=== PATIENT | female | born 1930 | race Caucasian/White ===

== ENCOUNTER 2017-02-21 13:48 | Inpatient (IN) | payer OTHER ==
--- NOTE | 2017-02-21 13:56 | PDOC ---
History of Present Illness - General History Source: Family Exam Limitations: No Limitations - History of Present Illness Initial Comments: 86 yo F h/o osteoporosis, HTN, ?dermoid tumor s/p R BKA, L knee replacement with severe lymphedema BIBEMS from home for feeling weak and poor appetite. Patient is poor historian and has no prior admission in [facility]. Most history was obtained from family at bedside. According to family, patient is functional at baseline but in the last few days, she's been weak and unable to eat due to poor appetite last few days, associated with spike fever of 102F, hard and questionable dark stool. She also lost 60 lbs in 1 year period. She was recently admitted to [facility] for swelling in L leg and was treated with antibiotics. Denies n/v, chest pain, shortness of breath, sick contact, abd pain. <Antoine Devries - Last Filed: 02/21/17 16:46> <King Hoyt - Last Filed: 02/21/17 19:20> - General Chief Complaint: Lethargy Stated Complaint: Weakness Time Seen by Provider: 02/21/17 13:55 Past History - Travel Traveled outside of the country in the last 30 days: No Close contact w/someone who was outside of country & ill: No <Antoine Devries - Last Filed: 02/21/17 16:46> <King Hoyt - Last Filed: 02/21/17 19:20> - Past Medical History Allergies/Adverse Reactions: Allergies Allergy/AdvReac Type Severity Reaction Status Date / Time No Known Allergies Allergy Verified 02/21/17 13:51 Home Medications: Ambulatory Orders Alendronate Na [Fosamax] 70 mg PO Q7D 02/21/17 Amlodipine Besylate [Norvasc -] 5 mg PO DAILY 02/21/17 Folic Acid 1 mg PO DAILY 02/21/17 Hydrochlorothiazide 25 mg PO DAILY 02/21/17 Hydroxychloroquine Sulfate 200 mg PO DAILY 02/21/17 Lovastatin [Altoprev] 20 mg PO DAILY 02/21/17 Methotrexate [Mexate -] 12.5 mg PO Q7D 02/21/17 Oxybutynin Chloride 5 mg PO DAILY 02/21/17 Potassium Chloride [Klor-Con] 20 meq PO DAILY 02/21/17 Review of Systems - Review of Systems Able to Perform ROS?: Yes (via family memeber) Is the patient limited Togolese proficient: No Constitutional: Yes: Chills, Fever, Loss of Appetite, Malaise, Weakness, Unintentional Wgt. Loss (60 lbs in 1 year) Respiratory: Yes: Cough. No: Shortness of Breath Cardiac (ROS): No: Chest Pain ABD/GI: Yes: Constipated, Tarry Stools. No: Nausea, Vomiting : No: Dysuria <Antoine Devries - Last Filed: 02/21/17 16:46> *Physical Exam - Physical Exam General Appearance: Yes: Cachetic, Thin. No: Apparent Distress HEENT: positive: Pale Conjunctivae Neck: positive: Trachea midline, Supple Respiratory/Chest: positive: Lungs Clear Rectal Exam: positive: melena, other (fecal incontinence) Neurologic: positive: Fully Oriented, Alert <Antoine Devries - Last Filed: 02/21/17 16:46> - Vital Signs Last Vital Signs Temp Pulse Resp BP Pulse Ox 100.7 F H 84 18 128/77 97 02/21/17 15:35 02/21/17 13:54 02/21/17 13:54 02/21/17 13:54 02/21/17 13:54 <King Hoyt - Last Filed: 02/21/17 19:20> ED Treatment Course - LABORATORY CBC & Chemistry Diagram: 02/21/17 14:20 02/21/17 14:19 <Antoine Devries - Last Filed: 02/21/17 16:46> - LABORATORY CBC & Chemistry Diagram: 02/21/17 14:20 02/21/17 14:19 - ADDITIONAL ORDERS Additional order review: Laboratory Results 02/21/17 02/21/17 02/21/17 15:00 14:55 14:19 Sodium Potassium Chloride Carbon Dioxide Anion Gap BUN Creatinine Creat Clearance w eGFR Random Glucose Calcium Phosphorus 3.2 Magnesium 1.2 L Total Bilirubin AST ALT Alkaline Phosphatase Total Protein Albumin Urine Color Dkyellow Urine Appearance Slcloudy Urine pH 5.0 Ur Specific [place] 1.017 Urine Protein 1+ H Urine Glucose (UA) Negative Urine Ketones Negative Urine Blood 1+ H Urine Nitrite Negative Urine Bilirubin Negative Urine Urobilinogen Negative Ur Leukocyte Esterase Trace H Urine RBC 1 Urine WBC 4 Ur Epithelial Cells Rare Hyaline Casts 3 Granular Casts 3 Urine Mucus Rare Stool Occult Blood Negative 02/21/17 14:19 Sodium 134 L Potassium 3.6 Chloride 98 Carbon Dioxide 22 Anion Gap 14 BUN 51 H Creatinine 1.4 H Creat Clearance w eGFR 35.74 Random Glucose 78 Calcium 8.1 L Phosphorus Magnesium Total Bilirubin 1.2 H AST 30 ALT 25 Alkaline Phosphatase 62 Total Protein 5.9 L Albumin 2.2 L Urine Color Urine Appearance Urine pH Ur Specific [place] Urine Protein Urine Glucose (UA) Urine Ketones Urine Blood Urine Nitrite Urine Bilirubin Urine Urobilinogen Ur Leukocyte Esterase Urine RBC Urine WBC Ur Epithelial Cells Hyaline Casts Granular Casts Urine Mucus Stool Occult Blood 02/21/17 14:20 RBC 3.27 L MCV 87.5 MCHC 32.6 RDW 16.3 H MPV 8.4 Neutrophils % 84.8 H Lymphocytes % 1.4 L Monocytes % 0.4 L Eosinophils % 13.3 H Basophils % 0.1 - RADIOLOGY Radiology Studies Ordered: Category Date Time Status CHEST X-RAY PORTABLE* [RAD] Stat Radiology 02/21/17 14:47 Completed - Medications Given in the ED: ED Medications Discontinued Medications Generic Name Dose Route Start Last Admin Trade Name Freq PRN Reason Stop Dose Admin Acetaminophen 650 mg 02/21/17 16:34 02/21/17 17:20 Tylenol - PO 02/21/17 16:35 650 mg ONCE ONE Administration Heparin Sodium (Porcine) 5,000 unit 02/21/17 15:51 02/21/17 16:49 Heparin - IVPUSH 02/21/17 15:52 5,000 unit ONCE ONE Administration Sodium Chloride 500 mls @ 500 mls/hr 02/21/17 15:38 02/21/17 16:48 Normal Saline - IV 02/21/17 16:37 500 mls/hr ASDIR STA Administration Heparin Sodium/Dextrose 500 mls @ 16 mls/hr 02/21/17 16:00 02/21/17 16:48 Heparin Infusion - IVPB Not Given TITR FAMILIA Protocol 800 UNITS/HR Sodium Chloride 500 mls @ 500 mls/hr 02/21/17 16:33 02/21/17 17:14 Normal Saline - IV 02/21/17 17:32 500 mls/hr ASDIR STA Administration Vancomycin HCl 1,000 mg 02/21/17 15:38 02/21/17 16:49 Vancomycin (Pre-Docked) IVPB 02/21/17 15:39 1,000 mg ONCE ONE Administration Protocol <King Hoyt - Last Filed: 02/21/17 19:20> Medical Decision Making - Medical Decision Making 02/21/17 15:06 86 yo F admitted to the ER for weakness and poor appetite. Patient does not look toxic or acutely ill, symptoms likely due to chronic medical condition. Will obtain full work up. 02/21/17 15:21 EKG shows new onset of a-fib. CHADSVASc score ~ 4. Lab works is remarkable for elevated BUN/Cr, low Mg2, negative stool OB. Patient still has low grade fever (100.7F) with chills, CXR is of poor quality but shows no acute pathology, UA is negative. 02/21/17 15:[address] Harry, will admit the patient and consult ID (Dr. Alarcon) 02/21/17 16:46 Lactic acid is 4.1, case discussed with Dr. Alarcon. <Antoine Devries - Last Filed: 02/21/17 16:46> *DC/Admit/Observation/Transfer - Discharge Dispostion Admit: Yes <Antoine Devries - Last Filed: 02/21/17 16:46> - Discharge Dispostion Admit: Yes <King Hoyt - Last Filed: 02/21/17 19:20> Diagnosis at time of Disposition: Lymphedema of left leg, Atrial fibrillation, new onset, Fever chills Cellulitis Qualifiers: Site of cellulitis: extremity Site of cellulitis of extremity: lower extremity Laterality: left Qualified Code(s): L03.116 - Cellulitis of left lower limb DVT (deep venous thrombosis) Qualifiers: DVT location: lower extremity Affected thrombotic vein of extremity: popliteal Laterality: left Chronicity: acute Qualified Code(s): I82.432 - Acute embolism and thrombosis of left popliteal vein - Discharge Dispostion Condition at time of disposition: Critical - Referrals
[2017-02-21 14:14] VITALS: BMI 23.1
--- NOTE | 2017-02-21 14:48 | PDOC ---
Attending Attestation - Resident Resident Name: Antoine Devries - ED Attending Attestation I have performed the following: I have examined & evaluated the patient, The case was reviewed & discussed with the resident, I agree w/resident's findings & plan - HPI HPI: 02/21/17 16:37 86y F hx of lymphedema, htn, oa, s/p r bka, lpresents from home for failure to thrive, per family the pt has been very week and poor appetite for several days and with a fever for atleast the past 3-4 days. on exam the pt has a very large L leg that is erythemadous and mildly warm to touch without other acute finidings as documented by dr. devries pt noted to have new onset afib - will start heparin will obtain US to r/o DVT --> swelling lymphedema vs dvt, likely cellulitis as it is warm - will treat with vancomycin +fever, likely from celluitis on LE, urine clean, cxr rotated, but sypmtoms inconsistent with pna lactic acid elevated to 4.1 --> likely sepsis will hydrate and reassess 02/21/17 19:10 +DVT on US discussed with pharmacy - as pt is above 80yo, and weight is ~60kg, Cr is 1.4, pt should remain at 2.5mg BID of eliquis 02/21/17 19:[address] solitario - will upgrade to ICU awaiting call back from dr. Schmidt CRITICAL CARE DOCUMENTATION: I spent ~45 minutes of Critical Care time, excluding separately billable procedures, involving high complexity decision making to assess, manipulate and support vital system function(s) to treat single or multiple vital organ system failure and/or to prevent further life threatening deterioration of the patient' s condition. - Physicial Exam PE: 02/21/17 19:38 see above - Medical Decision Making 02/24/17 10:06 see above Heart Score/ECG Review - ECG Impressions Comment:: 02/21/17 15:53 Twelve-lead EKG was performed and reviewed by me. Irregularly irregular rate of 103
[2017-02-21 14:55] LABS: BASOPHIL 0.1 % (0-2.0); EOSINOPHIL 13.3 % (0-4.5); MCH 28.5 pg (25.7-33.7); MCHC 32.6 g/dl (32.0-36.0); MEAN CELL VOLUME 87.5 fl (80-96); MEAN PLT VOLUME 8.4 fl (7.5-11.1); NEUTROPHILS 84.8 % (42.8-82.8); PLATELET COUNT 124 K/MM3 (134-434); RDW 16.3 % (11.6-15.6); WHITE BLOOD COUNT 7.5 K/mm3 (4.0-10.0)
[2017-02-21 14:55] LABS: ALBUMIN 2.2 g/dl (3.4-5.0); BILIRUBIN,TOTAL 1.2 mg/dL (0.2-1.0); CALCIUM 8.1 mg/dL (8.5-10.1); COCKROFT - GAULT 28.3985; CREATININE 1.4 mg/dL (0.55-1.02); TOT PROT 5.9 g/dl (6.4-8.2)
[2017-02-21 14:56] LABS: MAGNESIUM 1.2 mg/dL (1.8-2.4); PHOSPHOROUS 3.2 mg/dL (2.5-4.9)
[2017-02-21 15:26] LABS: URINE APPEARANCE SLCLOUDY; URINE BILIRUBIN NEGATIVE (NEGATIVE); URINE COLOR DKYELLOW; URINE GLUCOSE (UA) NEGATIVE (NEGATIVE); URINE KETONE NEGATIVE (NEGATIVE); URINE NITRITE NEGATIVE (NEGATIVE); URINE UROBILINOGEN NEGATIVE E.U./dl (0.2-1.0)
[2017-02-21 15:28] LABS: URINE BLOOD 1+ (NEGATIVE); URINE LEUK ESTERASE TRACE (NEGATIVE); URINE PROTEIN 1+ (NEGATIVE)
[2017-02-21 15:33] LABS: GRANULAR CASTS 3 /lpf; URINE HYALINE CAST 3 /lpf; URINE MUCUS RARE; URINE RBC 1 /hpf (0-3); URINE WBC 4 /hpf (3-5)
[2017-02-21] MEDS ORDERED: SODIUM CHLORIDE 500 ML IV STA ×2 (15:38→16:33)
[2017-02-21] MEDS ORDERED: VANCOMYCIN 1 GRAM (PRE-DOCKED) 1,000 MG/250 ML BAG IVPB ONE (15:38)
[2017-02-21] MEDS ORDERED: HEPARIN NA (PORCINE) 5,000 UNITS/ML 1ML VIAL IVPUSH ONE (15:51)
[2017-02-21] MEDS ORDERED: HEPARIN INFUSION - 500 ML IVPB SCH (16:00)
--- NOTE | 2017-02-21 16:00 | CON.CARD ---
Consult Consult Specialty:: Cardiology Referred by:: Emergency Department Reason for Consultation:: Newly diagnosed afib - History of Present Illness Chief Complaint: Fatigue History of Present Illness: 86 yo F h/o osteoporosis, HTN, ?dermoid tumor s/p R BKA, L knee replacement with severe lymphedema, rheumatoid arthritis BIBEMS from home for feeling weak, fever and poor appetite. Patient is poor historian and has no prior admission in [facility]. Most history was obtained from family at bedside. According to family, patient is functional at baseline, but in the last few days, she's been weak and unable to eat due to poor appetite last few days, associated with spike fever of 102F, hard and questionable dark stool. She also lost 60 lbs in 1 year period. She was recently admitted to [facility] for swelling in L leg. Denies n/v, chest pain, shortness of breath, near or true syncope, palpitations or abd pain. Found to be in afib 103. - History Source History Provided By: Patient Limitations to Obtaining History: No Limitations - Past Medical History Cardio/Vascular: Yes: AFIB, HTN - Alcohol/Substance Use Hx Alcohol Use: No - Smoking History Smoking history: Never smoked Home Medications - Allergies Allergies/Adverse Reactions: Allergies Allergy/AdvReac Type Severity Reaction Status Date / Time No Known Allergies Allergy Verified 02/21/17 13:51 - Home Medications Home Medications: Ambulatory Orders Alendronate Na [Fosamax] 70 mg PO Q7D 02/21/17 Amlodipine Besylate [Norvasc -] 5 mg PO DAILY 02/21/17 Folic Acid 1 mg PO DAILY 02/21/17 Hydrochlorothiazide 25 mg PO DAILY 02/21/17 Hydroxychloroquine Sulfate 200 mg PO DAILY 02/21/17 Lovastatin [Altoprev] 20 mg PO DAILY 02/21/17 Methotrexate [Mexate -] 12.5 mg PO Q7D 02/21/17 Oxybutynin Chloride 5 mg PO DAILY 02/21/17 Potassium Chloride [Klor-Con] 20 meq PO DAILY 02/21/17 Review of Systems - Review of Systems Constitutional: reports: Fever, Lethargy, Loss of Appetite Vital Signs: Vital Signs Temperature 100.7 F H 02/21/17 15:35 Pulse Rate 84 02/21/17 13:54 Respiratory Rate 18 02/21/17 13:54 Blood Pressure 128/77 02/21/17 13:54 O2 Sat by Pulse Oximetry (%) 97 02/21/17 13:54 Constitutional: Yes: No Distress, Calm Neck: Yes: Supple Respiratory: Yes: Regular, Diminished Gastrointestinal: Yes: Normal Bowel Sounds, Soft Cardiovascular: Yes: Tachycardia, Pulse Irregular JVD: No Carotid Bruit: No Heart Sounds: Yes: S1, S2 Murmur: Yes: Systolic Murmur, Grade 2 Extremities: Yes: Amputation (Right BKA) Edema: Yes Edema: LLE: 2+ - Other Data Labs, Other Data: CBC, BMP 02/21/17 14:20 02/21/17 14:19 Afib @ 103 Imaging - Results Chest X-ray: Report Reviewed (NAD) Problem List - Problems (1) Atrial fibrillation, new onset Code(s): I48.91 - UNSPECIFIED ATRIAL FIBRILLATION (2) Cellulitis Code(s): L03.90 - CELLULITIS, UNSPECIFIED Qualifiers: Site of cellulitis: extremity Site of cellulitis of extremity: lower extremity Laterality: left Qualified Code(s): L03.116 - Cellulitis of left lower limb (3) Fever chills Code(s): R50.9 - FEVER, UNSPECIFIED (4) Lymphedema of left leg Code(s): I89.0 - LYMPHEDEMA, NOT ELSEWHERE CLASSIFIED (5) Hypertensive cardiovascular disease Code(s): I11.9 - HYPERTENSIVE HEART DISEASE WITHOUT HEART FAILURE Qualifiers: Heart failure presence: without heart failure Qualified Code(s): I11.9 - Hypertensive heart disease without heart failure (6) Renal insufficiency Code(s): N28.9 - DISORDER OF KIDNEY AND URETER, UNSPECIFIED (7) Hyperlipidemia Code(s): E78.5 - HYPERLIPIDEMIA, UNSPECIFIED Qualifiers: Hyperlipidemia type: pure hypercholesterolemia Qualified Code(s): E78.00 - Pure hypercholesterolemia, unspecified; E78.0 - Pure hypercholesterolemia (8) Rheumatoid arthritis Code(s): M06.9 - RHEUMATOID ARTHRITIS, UNSPECIFIED Qualifiers: Rheumatoid arthritis location: unspecified site Assessment/Plan 1. Newly diagnosed atrial fibrillation of uncertain duration [id number] 2. HTN/HCVD 3. Rheumatoid arthritis 4. Febrile illness, possible overlying cellulitis of lymphedema limb 5. Hyperlipidemia 6. Renal insufficieny, unknown baseline P:1. Start Lopressor 25 bid with uptitration as tolerated, Eliquis 2.5 bid given elevated risk score, Lipitor 10 qd, eventual MAHNAZ-I/ARB once renal fxn stabilizes 2. Echocardiogram to assess ventricular and valve fxn 3. Empiric abx cover skin source , f/u C&S 4. Thank you for consultative opportunity
[2017-02-21] MEDS ORDERED: VANCOMYCIN 1 GRAM (PRE-DOCKED) 250 ML IVPB ONE (16:25)
[2017-02-21] MEDS ORDERED: HEPARIN NA (PORCINE) 5,000 UNITS/ML 1ML VIAL ONE (16:25)
[2017-02-21] MEDS ORDERED: HEPARIN INFUSION - 500 ML IVPB ONE (16:26)
[2017-02-21] MEDS ORDERED: ACETAMINOPHEN 325 MG TABLET (FP) PO ONE ×2 (16:34→19:34)
[2017-02-21 17:15] LABS: VENOUS BLOOD GAS HCO3 23.1 meq/L (19-25)
[2017-02-21] MEDS ORDERED: METOPROLOL TARTRATE 25 MG TABLET (FP) ONE (17:15)
[2017-02-21] MEDS ORDERED: ACETAMINOPHEN 325 MG TABLET (FP) ONE ×2 (17:15→19:35)
[2017-02-21 17:16] LABS: VENOUS PH 7.44 (7.32-7.42)
[2017-02-21] MEDS: METOPROLOL TARTRATE 25 MG TABLET (FP) PO SCH ×2 (17:20→22:57)
--- NOTE | 2017-02-21 17:28 | HP ---
Admitting History and Physical - Primary Care Physician PCP: Bob Harry - Admission History of Present Illness: 86 yo F h/o osteoporosis, HTN, ?dermoid tumor s/p R BKA, L knee replacement with severe lymphedema BIBEMS from home for feeling weak and poor appetite. Patient is poor historian and has no prior admission in [facility]. Most history was obtained from family at bedside. According to family, patient is functional at baseline but in the last few days, she's been weak and unable to eat due to poor appetite last few days, associated with spike fever of 102F, hard and questionable dark stool. She also lost 60 lbs in 1 year period. She was recently admitted to [facility] for swelling in L leg and was treated with antibiotics. Denies n/v, chest pain, shortness of breath, sick contact, abd pain. - Past Medical History Cardiovascular: Yes: AFIB, HTN - Smoking History Smoking history: Never smoked - Alcohol/Substance Use Hx Alcohol Use: No Home Medications - Allergies Allergies/Adverse Reactions: Allergies Allergy/AdvReac Type Severity Reaction Status Date / Time No Known Allergies Allergy Verified 02/21/17 13:51 - Home Medications Home Medications: Ambulatory Orders Alendronate Na [Fosamax] 70 mg PO Q7D 02/21/17 Amlodipine Besylate [Norvasc -] 5 mg PO DAILY 02/21/17 Folic Acid 1 mg PO DAILY 02/21/17 Hydrochlorothiazide 25 mg PO DAILY 02/21/17 Hydroxychloroquine Sulfate 200 mg PO DAILY 02/21/17 Lovastatin [Altoprev] 20 mg PO DAILY 02/21/17 Methotrexate [Mexate -] 12.5 mg PO Q7D 02/21/17 Oxybutynin Chloride 5 mg PO DAILY 02/21/17 Potassium Chloride [Klor-Con] 20 meq PO DAILY 02/21/17 Physical Examination Vital Signs: Vital Signs Temperature 100.7 F H 02/21/17 15:35 Pulse Rate 84 02/21/17 13:54 Respiratory Rate 18 02/21/17 13:54 Blood Pressure 128/77 02/21/17 13:54 O2 Sat by Pulse Oximetry (%) 97 02/21/17 13:54 Constitutional: Yes: No Distress HENT: Yes: Atraumatic Neck: Yes: Supple Cardiovascular: Yes: Regular Rate and Rhythm Respiratory: Yes: CTA Bilaterally Gastrointestinal: Yes: Normal Bowel Sounds Extremities: Yes: Other (LLEX CELLULITIS) Edema: RUE: 1+, LLE: 1+ Neurological: Yes: Alert Problem List - Problems (1) Atrial fibrillation, new onset Assessment/Plan: ON IV HEPARIN Code(s): I48.91 - UNSPECIFIED ATRIAL FIBRILLATION (2) Cellulitis Assessment/Plan: ON IV ABX BCX SENT ID CONSULT Code(s): L03.90 - CELLULITIS, UNSPECIFIED Qualifiers: Site of cellulitis: extremity Site of cellulitis of extremity: lower extremity Laterality: left Qualified Code(s): L03.116 - Cellulitis of left lower limb (3) Hyperlipidemia Assessment/Plan: ON MEDS STABLE Code(s): E78.5 - HYPERLIPIDEMIA, UNSPECIFIED Qualifiers: Hyperlipidemia type: pure hypercholesterolemia Qualified Code(s): E78.00 - Pure hypercholesterolemia, unspecified; E78.0 - Pure hypercholesterolemia (4) DVT (deep venous thrombosis) Assessment/Plan: IV HEPARIN Code(s): I82.409 - ACUTE EMBOLISM AND THOMBOS UNSP DEEP VN UNSP LOWER EXTREMITY Qualifiers: DVT location: lower extremity Affected thrombotic vein of extremity: popliteal Laterality: left Chronicity: acute Qualified Code(s): I82.432 - Acute embolism and thrombosis of left popliteal vein (5) Fever chills Assessment/Plan: BCX IV ABX Code(s): R50.9 - FEVER, UNSPECIFIED (6) Hypertensive cardiovascular disease Assessment/Plan: BP LOW ON PRESSORS Code(s): I11.9 - HYPERTENSIVE HEART DISEASE WITHOUT HEART FAILURE Qualifiers: Heart failure presence: without heart failure Qualified Code(s): I11.9 - Hypertensive heart disease without heart failure (7) Lymphedema of left leg Code(s): I89.0 - LYMPHEDEMA, NOT ELSEWHERE CLASSIFIED (8) Renal insufficiency Code(s): N28.9 - DISORDER OF KIDNEY AND URETER, UNSPECIFIED (9) Rheumatoid arthritis Code(s): M06.9 - RHEUMATOID ARTHRITIS, UNSPECIFIED Qualifiers: Rheumatoid arthritis location: unspecified site (10) Sepsis Assessment/Plan: POSITVE BCX IV ABX Code(s): A41.9 - SEPSIS, UNSPECIFIED ORGANISM Assessment/Plan Laboratory Tests 04/24/17 04/24/17 04/24/17 14:19 14:19 14:20 WBC 7.5 RBC 3.27 L Hgb 9.3 L Hct 28.6 L MCV 87.5 MCHC 32.6 RDW 16.3 H Plt Count 124 L MPV 8.4 Neutrophils % 84.8 H Lymphocytes % 1.4 L Monocytes % 0.4 L Eosinophils % 13.3 H Basophils % 0.1 VBG pH POC VBG pCO2 POC VBG pO2 Mixed VBG HCO3 Sodium 134 L Potassium 3.6 Chloride 98 Carbon Dioxide 22 Anion Gap 14 BUN 51 H Creatinine 1.4 H Creat Clearance w eGFR 35.74 Random Glucose 78 Lactic Acid Calcium 8.1 L Phosphorus 3.2 Magnesium 1.2 L Total Bilirubin 1.2 H AST 30 ALT 25 Alkaline Phosphatase 62 Total Protein 5.9 L Albumin 2.2 L TSH Urine Color Urine Appearance Urine pH Ur Specific [place] Urine Protein Urine Glucose (UA) Urine Ketones Urine Blood Urine Nitrite Urine Bilirubin Urine Urobilinogen Ur Leukocyte Esterase Urine RBC Urine WBC Ur Epithelial Cells Hyaline Casts Granular Casts Urine Mucus Stool Occult Blood 02/21/17 02/21/17 02/21/17 14:55 15:00 15:45 WBC RBC Hgb Hct MCV MCHC RDW Plt Count MPV Neutrophils % Lymphocytes % Monocytes % Eosinophils % Basophils % VBG pH POC VBG pCO2 POC VBG pO2 Mixed VBG HCO3 Sodium Potassium Chloride Carbon Dioxide Anion Gap BUN Creatinine Creat Clearance w eGFR Random Glucose Lactic Acid 4.171 H* Calcium Phosphorus Magnesium Total Bilirubin AST ALT Alkaline Phosphatase Total Protein Albumin TSH Urine Color Dkyellow Urine Appearance Slcloudy Urine pH 5.0 Ur Specific [place] 1.017 Urine Protein 1+ H Urine Glucose (UA) Negative Urine Ketones Negative Urine Blood 1+ H Urine Nitrite Negative Urine Bilirubin Negative Urine Urobilinogen Negative Ur Leukocyte Esterase Trace H Urine RBC 1 Urine WBC 4 Ur Epithelial Cells Rare Hyaline Casts 3 Granular Casts 3 Urine Mucus Rare Stool Occult Blood Negative 02/21/17 02/21/17 15:45 17:00 WBC RBC Hgb Hct MCV MCHC RDW Plt Count MPV Neutrophils % Lymphocytes % Monocytes % Eosinophils % Basophils % VBG pH 7.44 H POC VBG pCO2 34.2 L POC VBG pO2 19.7 L* Mixed VBG HCO3 23.1 Sodium Potassium Chloride Carbon Dioxide Anion Gap BUN Creatinine Creat Clearance w eGFR Random Glucose Lactic Acid Calcium Phosphorus Magnesium Total Bilirubin AST ALT Alkaline Phosphatase Total Protein Albumin TSH 0.76 Urine Color Urine Appearance Urine pH Ur Specific [place] Urine Protein Urine Glucose (UA) Urine Ketones Urine Blood Urine Nitrite Urine Bilirubin Urine Urobilinogen Ur Leukocyte Esterase Urine RBC Urine WBC Ur Epithelial Cells Hyaline Casts Granular Casts Urine Mucus Stool Occult Blood Active Medications Generic Name Dose Route Start Last Admin Trade Name Freq PRN Reason Stop Dose Admin Apixaban 2.5 mg 02/21/17 16:45 Eliquis - PO BID FAMILIA Sodium Chloride 500 mls @ 500 mls/hr 02/21/17 16:33 Normal Saline - IV 02/21/17 17:32 ASDIR STA Metoprolol Tartrate 25 mg 02/21/17 16:45 Lopressor - PO BID FAMILIA Assessment/Plan 1. Newly diagnosed atrial fibrillation of uncertain duration [id number] 2. HTN/HCVD 3. Rheumatoid arthritis 4. Febrile illness, possible overlying cellulitis of lymphedema limb 5. Hyperlipidemia 6. Renal insufficieny, unknown baseline 7.elevated lactic acid due to sepsis plan 1.on beta rebecca...HOLD on heparin cardiology consult 2.fever.../SEPSIS iv abx ucx bcx WILL CALL APPROPRITE CONSULTS ADMIT IN ICU cc time 60 min
[2017-02-21] MEDS: APIXABAN 2.5 MG TABLET PO SCH ×2 (17:31→23:34)
[2017-02-21] MEDS ORDERED: CEFTRIAXONE 50 ML IVPB SCH (18:30)
--- NOTE | 2017-02-21 19:25 | PN ---
Progress Note, Physician - Current Medication List Current Medications: Active Medications Apixaban (Eliquis -) 2.5 mg PO BID [facility] Last Admin: 02/21/17 17:31 Dose: Not Given Heparin Sodium (Porcine) (Heparin -) 5,000 unit SQ BID [facility] Ceftriaxone Sodium (Rocephin 1gm Ivpb (Pre-Docked)) 50 mls @ 200 mls/hr IVPB DAILY [facility] Metoprolol Tartrate (Lopressor -) 25 mg PO BID [facility] Last Admin: 02/21/17 17:20 Dose: 25 mg - Objective Vital Signs: Vital Signs Temperature 100.7 F H 02/21/17 15:35 Pulse Rate 84 02/21/17 13:54 Respiratory Rate 18 02/21/17 13:54 Blood Pressure 128/77 02/21/17 13:54 O2 Sat by Pulse Oximetry (%) 97 02/21/17 13:54
--- NOTE | 2017-02-21 19:25 | CONSULT ---
Consult Consult Specialty:: infectious diseases Referred by:: Reason for Consultation:: cellulitis left leg - History of Present Illness History of Present Illness: 86 yo F h/o osteoporosis, HTN, ?dermoid tumor s/p R BKA, L knee replacement with severe lymphedema BIBEMS from home for feeling weak and poor appetite. Patient is poor historian and has no prior admission in [facility]. Most history was obtained from family at bedside. According to family, patient is functional at baseline but in the last few days, she's been weak and unable to eat due to poor appetite last few days, associated with spike fever of 102F, hard and questionable dark stool. She also lost 60 lbs in 1 year period. She was recently admitted to [facility] for swelling in L leg and was treated with antibiotics. Denies n/v, chest pain, shortness of breath, sick contact, abd pain. history taken from charts and family as patient patient was worked up and found to have new onset afib and also dvt - History Source History Provided By: Medical Record Limitations to Obtaining History: Clinical Condition - Past Medical History Cardio/Vascular: Yes: AFIB, HTN - Alcohol/Substance Use Hx Alcohol Use: No - Smoking History Smoking history: Never smoked Home Medications - Allergies Allergies/Adverse Reactions: Allergies Allergy/AdvReac Type Severity Reaction Status Date / Time No Known Allergies Allergy Verified 02/21/17 13:51 - Home Medications Home Medications: Ambulatory Orders Alendronate Na [Fosamax] 70 mg PO Q7D 02/21/17 Amlodipine Besylate [Norvasc -] 5 mg PO DAILY 02/21/17 Folic Acid 1 mg PO DAILY 02/21/17 Hydrochlorothiazide 25 mg PO DAILY 02/21/17 Hydroxychloroquine Sulfate 200 mg PO DAILY 02/21/17 Lovastatin [Altoprev] 20 mg PO DAILY 02/21/17 Methotrexate [Mexate -] 12.5 mg PO Q7D 02/21/17 Oxybutynin Chloride 5 mg PO DAILY 02/21/17 Potassium Chloride [Klor-Con] 20 meq PO DAILY 02/21/17 Review of Systems Unable to obtain ROS, reason: unable to obtain - Review of Systems Constitutional: reports: Fever, Lethargy Physical Exam Vital Signs: Vital Signs Temperature 100.7 F H 02/21/17 15:35 Pulse Rate 84 02/21/17 13:54 Respiratory Rate 18 02/21/17 13:54 Blood Pressure 128/77 02/21/17 13:54 O2 Sat by Pulse Oximetry (%) 97 02/21/17 13:54 Constitutional: Yes: Moderate Distress, Other Eyes: Yes: Conjunctiva Clear HENT: Yes: Atraumatic Neck: Yes: Supple Cardiovascular: Yes: Regular Rate and Rhythm, Murmur Respiratory: Yes: Regular, Poor Air Entry Gastrointestinal: Yes: Normal Bowel Sounds, Soft Musculoskeletal: Yes: Joint Swelling, Muscle Pain, Other Extremities: Yes: Erythema, Other (swelling of the left ext) Edema: LLE: 2+ Integumentary: Yes: Erythema, Venous Stasis Changes, Other (lymphedema) Neurological: Yes: Alert, Confusion Psychiatric: Yes: Alert Imaging - Results Chest X-ray: Report Reviewed, Image Reviewed Assessment/Plan Problem List - Problems (1) Atrial fibrillation, new onset Code(s): I48.91 - UNSPECIFIED ATRIAL FIBRILLATION (2) Cellulitis Code(s): L03.90 - CELLULITIS, UNSPECIFIED Qualifiers: Site of cellulitis: extremity Site of cellulitis of extremity: lower extremity Laterality: left Qualified Code(s): L03.116 - Cellulitis of left lower limb (3) DVT (deep venous thrombosis) Code(s): I82.409 - ACUTE EMBOLISM AND THOMBOS UNSP DEEP VN UNSP LOWER EXTREMITY Qualifiers: DVT location: lower extremity Affected thrombotic vein of extremity: popliteal Laterality: left Chronicity: acute Qualified Code(s): I82.432 - Acute embolism and thrombosis of left popliteal vein (4) Fever chills Code(s): R50.9 - FEVER, UNSPECIFIED (5) Renal insufficiency Code(s): N28.9 - DISORDER OF KIDNEY AND URETER, UNSPECIFIED patient also has rlower lobe infiltrate plan close watch on fevers close watch on the ext patient is septic will start on broad spectrum abx icu to be on board await for cx to be back cc time 50 min
[2017-02-21] MEDS ORDERED: CEFTRIAXONE 50 ML ONE (19:28)
--- NOTE | 2017-02-21 21:03 | CONSULT ---
Consult Consult Specialty:: Pulm/CCM Reason for Consultation:: sepsis, cellulitis - History of Present Illness History of Present Illness: 86 yo woman osteoporosis, dermoid tumor s/p right BKA, HTN left knee replacement c/b severe lymphedema further complicated by cellulitis requiring recent admission to OSH for ABX presenting now with failure to thrive (weight loss >60lb in last yr), fever (102) in the setting of LE edema and erythema c/w recurrent cellulitis. In ED febrile. ABX started per ID. Found to have afib and LLE DVT started on apixaban. Lactate 4. BP 124/77 sat 100% on 2lpm. Patient transferred to ICU. Hemodynamically stable w/o distress. Denies n/v, chest pain, shortness of breath, sick contact, abd pain - History Source History Provided By: Patient, Medical Record - Past Medical History Cardio/Vascular: Yes: AFIB, HTN - Alcohol/Substance Use Hx Alcohol Use: No - Smoking History Smoking history: Never smoked Home Medications - Allergies Allergies/Adverse Reactions: Allergies Allergy/AdvReac Type Severity Reaction Status Date / Time No Known Allergies Allergy Verified 02/21/17 13:51 - Home Medications Home Medications: Ambulatory Orders Alendronate Na [Fosamax] 70 mg PO Q7D 02/21/17 Amlodipine Besylate [Norvasc -] 5 mg PO DAILY 02/21/17 Folic Acid 1 mg PO DAILY 02/21/17 Hydrochlorothiazide 25 mg PO DAILY 02/21/17 Hydroxychloroquine Sulfate 200 mg PO DAILY 02/21/17 Lovastatin [Altoprev] 20 mg PO DAILY 02/21/17 Methotrexate [Mexate -] 12.5 mg PO Q7D 02/21/17 Oxybutynin Chloride 5 mg PO DAILY 02/21/17 Potassium Chloride [Klor-Con] 20 meq PO DAILY 02/21/17 Family Disease History - Family Disease History Family History: Unremarkable Review of Systems - Review of Systems Constitutional: reports: Chills, Fever, Loss of Appetite, Unintentional Wgt. Loss, Weakness Integumentary: reports: Erythema (LLE edema, warm to touch), Other (stage 2 sacral) Physical Exam Vital Signs: Vital Signs Temperature 100.7 F H 02/21/17 15:35 Pulse Rate 84 02/21/17 13:54 Respiratory Rate 18 02/21/17 13:54 Blood Pressure 128/77 02/21/17 13:54 O2 Sat by Pulse Oximetry (%) 97 02/21/17 13:54 Current Medications Apixaban (Eliquis -) 2.5 mg PO BID [facility] Last Admin: 02/21/17 17:31 Dose: Not Given Ceftriaxone Sodium (Rocephin 1gm Ivpb (Pre-Docked)) 50 mls @ 200 mls/hr IVPB DAILY [facility] Last Admin: 02/21/17 21:00 Dose: 200 mls/hr Vancomycin HCl 1,250 mg/ (Dextrose) 250 mls @ 250 mls/hr IVPB DAILY [facility] PRN Reason: Protocol Piperacillin Sod/Tazobactam Sod (Zosyn 3.375gm Ivpb (Pre-Docked)) 50 mls @ 100 mls/hr IVPB Q8H-IV [facility] PRN Reason: Protocol Metoprolol Tartrate (Lopressor -) 25 mg PO BID [facility] Last Admin: 02/21/17 22:57 Dose: Not Given Nystatin (Nystop Powder -) 1 applic TP DAILY [facility] Constitutional: Yes: No Distress, Calm Eyes: Yes: EOM Intact, PERRL Cardiovascular: Yes: Tachycardia, Pulse Irregular, S2 Respiratory: Yes: Diminished Gastrointestinal: Yes: Soft Extremities: Yes: Other (LLE severe lymphedema, warm to touch) Imaging - Results Chest X-ray: Report Reviewed, Image Reviewed Problem List - Problems (1) Atrial fibrillation, new onset Code(s): I48.91 - UNSPECIFIED ATRIAL FIBRILLATION (2) Cellulitis Code(s): L03.90 - CELLULITIS, UNSPECIFIED Qualifiers: Site of cellulitis: extremity Site of cellulitis of extremity: lower extremity Laterality: left Qualified Code(s): L03.116 - Cellulitis of left lower limb (3) DVT (deep venous thrombosis) Code(s): I82.409 - ACUTE EMBOLISM AND THOMBOS UNSP DEEP VN UNSP LOWER EXTREMITY Qualifiers: DVT location: lower extremity Affected thrombotic vein of extremity: popliteal Laterality: left Chronicity: acute Qualified Code(s): I82.432 - Acute embolism and thrombosis of left popliteal vein (4) Fever chills Code(s): R50.9 - FEVER, UNSPECIFIED (5) Renal insufficiency Code(s): N28.9 - DISORDER OF KIDNEY AND URETER, UNSPECIFIED Assessment/Plan 86 yo woman sepsis r/t left LE cellulitis c/b afib w/ RVR found to have left sided DVT c/b RADHA -ABX per ID -O2 for sat >90% -anti-coagulation per primary team -incentive silvina -consider oncologic w/u for weight loss and failure thrive -IV fluids -renal dose medication Observe in ICU tonight can likely got to tele in AM Boerem ACNP Pulm/CCM
[2017-02-21] MEDS ORDERED: HEPARIN NA (PORCINE) 5,000 UNITS/ML 1ML VIAL SQ SCH (22:00)
[2017-02-21 22:36] LABS: TROPONIN I 0.51 ng/ml (0.00-0.05)
[2017-02-21] MEDS ORDERED: PT OWN MED DRAWER 7, Y5N ONE (22:41)
[2017-02-21] MEDS ORDERED: MAGNESIUM SULF 50% (8.12 MEQ/2 ML-1 GM VIAL) IVPB ONE (23:30)
[2017-02-22] MEDS: PIPERACILLIN/TAZOB 3.375 GM 50 ML IVPB SCH ×3 (02:30→17:31)
[2017-02-22] MEDS ORDERED: ACETAMINOPHEN 650 MG SUPP.RECT PR PRN (05:36)
[2017-02-22 06:50] LABS: MCH 28.6 pg (25.7-33.7); MEAN CELL VOLUME 89.4 fl (80-96); MEAN PLT VOLUME 8.7 fl (7.5-11.1)
--- NOTE | 2017-02-22 06:56 | PN ---
Progress Note (short form) - Note Progress Note: Chief Complaint: Events noted, notes reviewed, in moderate respiratory distress , cyanotic, complaining of dyspnea, no reported chest pain History of Present Illness: Seen and examined in the ICU. Events noted, notes reviewed, in moderate respiratory distress, cyanotic, complaining of dyspnea, no reported chest pain Febrile Medications: Current Medications Acetaminophen (Tylenol Suppository -) 650 mg TN Q6H PRN PRN Reason: FEVER OR PAIN Apixaban (Eliquis -) 2.5 mg PO BID [facility] Last Admin: 02/21/17 23:34 Dose: 2.5 mg Vancomycin HCl 1,250 mg/ (Dextrose) 250 mls @ 250 mls/hr IVPB DAILY [facility] PRN Reason: Protocol Piperacillin Sod/Tazobactam Sod (Zosyn 3.375gm Ivpb (Pre-Docked)) 50 mls @ 100 mls/hr IVPB Q8H-IV [facility] PRN Reason: Protocol Last Admin: 02/22/17 02:30 Dose: 100 mls/hr Metoprolol Tartrate (Lopressor -) 25 mg PO BID [facility] Last Admin: 02/21/17 22:57 Dose: Not Given Nystatin (Nystop Powder -) 1 applic TP DAILY [facility] Review of Systems Constitutional: denies Chills or Fever Respiratory: reports: Dyspnea Cardiovascular: As noted above Gastrointestinal: denies Nausea, Vomiting, Diarrhea or Constipation or Abdominal Discomfort Genitourinary: No Symptoms Reported Musculoskeletal: No Symptoms Reported Vital Signs: Last Vital Signs Temp Pulse Resp BP Pulse Ox 102.7 F H 101 H 38 H 99/52 92 L 02/21/17 23:00 02/22/17 06:24 02/22/17 05:00 02/22/17 01:02 02/22/17 06:24 Intake & Output 02/19/17 02/20/17 02/21/17 02/22/17 23:59 23:59 23:59 23:59 Intake Total 100 100 Balance 100 100 Weight 135 lb Constitutional: No Distress, Calm Neck: Supple Negative JVD No Bruit Respiratory: Diminished Breath Sounds at the Bases Bilaterally, Distant Breath Sounds Cardiovascular: S1 S2 Irregularly Irregular Grade 2/6 SM Gastrointestinal: Soft Benign Normal Bowel Sounds, Soft Extremities: Right BKA, Edema LLE Labs: Troponin, BNP 04/24/17 21:45 Troponin I 0.51 H CBC, BMP 02/22/17 05:17 Hepatic Panel Total Bilirubin 1.2 mg/dL (0.2-1.0) H 02/21/17 14:19 AST 30 U/L (15-37) 02/21/17 14:19 ALT 25 U/L (12-78) 02/21/17 14:19 Alkaline Phosphatase 62 U/L (45-117) 02/21/17 14:19 Albumin 2.2 g/dl (3.4-5.0) L 02/21/17 14:19 ABG Results ABG pH 7.34 (7.35-7.45) L 02/22/17 07:02 ABG pCO2 at Pt Temp 40.1 mmHg (35-45) 02/22/17 07:02 ABG pO2 at Pt Temp 98.1 mmHg (68-100) 02/22/17 07:02 ABG HCO3 20.6 meq/L (22-26) L 02/22/17 07:02 ABG O2 Sat (Measured) 96.1 % (90-98.9) 02/22/17 07:02 ABG O2 Content 12.0 % vol (15-22) L 02/22/17 07:02 ABG Base Excess -3.6 meq/l (-2-2) L 02/22/17 07:02 Assessment/Plan ASSESSMENT: 1. Respiratory distress, possible PTE in the setting of an acute DVT 2. 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 Diastolic LV dysfunction with class 0 NYHA classification LV failure 5. Neutropenia and anemia 6. Fever, possible cellulites 7. HTN 8. Hyperlipidemia 9. Acute renal insufficiency 10. Rheumatoid arthritis PLAN: 1. Continue Lopressor 2. Continue Eliquis at 2.5 mg twice daily (appropriate dosing for PAF), checked with pharmacy regarding dosing, there no data in reference to DVT treatment in this age group, to be discussed with the critical care team 3. Continue Lipitor 4. Recommend initiating MAHNAZ-I/ARB once renal function stabilizes 5. Antibiotics as per the primary team 6. ABG and chest x-ray this AM 7. Ideally chest CTA to evaluate for PTE, but defer related to acute renal insufficiency 8. Echocardiography to assess ventricular and valve function Berkley Posey MD
[2017-02-22 06:59] LABS: WHITE BLOOD COUNT 1.8 K/mm3 (4.0-10.0)
[2017-02-22 07:13] LABS: ALBUMIN 1.9 g/dl (3.4-5.0); BILIRUBIN,TOTAL 1.5 mg/dL (0.2-1.0); CALCIUM 7.8 mg/dL (8.5-10.1); COCKROFT - GAULT 24.8455; CREATININE 1.6 mg/dL (0.55-1.02); TOT PROT 5.3 g/dl (6.4-8.2)
[2017-02-22 07:13] LABS: ARTERIAL BLD GAS O2 SATURATION 96.1 % (90-98.9); ARTERIAL BLOOD GAS BASE EXCESS -3.6 meq/l (-2-2); ARTERIAL BLOOD GAS HCO3 20.6 meq/L (22-26); ARTERIAL BLOOD GAS PO2 98.1 mmHg (68-100); ARTERIAL BLOOD GAS pH 7.34 (7.35-7.45)
[2017-02-22 07:14] LABS: ALLENS TEST POSITIVE; ART PUNCT SITE RIGHT RADIAL; LPM/O2% 100%; PT. ON O2? YES; TYPE OF O2 AEROSOL MASK
[2017-02-22 07:15] LABS: PT'S TEMP 102.6
[2017-02-22] MEDS ORDERED: DEXTROSE 50%-WATER 50 ML VIAL ONE (07:31)
[2017-02-22] MEDS ORDERED: DEXTROSE 5%-NORMAL SALINE 1,000 ML IV SCH (07:45)
[2017-02-22] MEDS ORDERED: DEXTROSE 5%-NORMAL SALINE 500 ML IV SCH (07:45)
[2017-02-22 09:25] LABS: PLATELET COUNT 60 K/MM3 (134-434)
[2017-02-22 09:36] LABS: METAMYELOCYTE 1 % (0-2); PLATELET ESTIMATE DECREASED (NORMAL)
[2017-02-22 10:00] LABS: MAGNESIUM 2.1 mg/dL (1.8-2.4); PHOSPHOROUS 3.3 mg/dL (2.5-4.9)
[2017-02-22] MEDS: NYSTATIN POWDER 100,000 UNITS/GM - 15 GM TOPICAL POWDER TP SCH (10:20)
[2017-02-22] MEDS: METOPROLOL TARTRATE 25 MG TABLET (FP) PO SCH ×2 (10:20→21:53)
[2017-02-22] MEDS: APIXABAN 2.5 MG TABLET PO SCH ×2 (10:21→22:52)
--- NOTE | 2017-02-22 12:18 | PROC ---
Central Line Insertion Indication: CVP Monitoring, Sepsis, Vasopressor Risks and Benefits Explained: Yes Consent on Chart: Yes Central Line: Triple Lumen Catheter Anesthesia: 1% Lidocaine Sterile Technique: Yes Ultrasound Guided Assistance: Yes Position: Right Internal Jugular Post Insertion: Yes: Bilateral Breath Sounds, Bilateral Chest Expansion, Chest X-Ray Ordered Sterile Dressing Applied: Yes
[2017-02-22] MEDS ORDERED: NOREPINEPHRINE BITARTRATE 4 MG/4 ML ML IV ONE ×2 (12:21→20:47)
[2017-02-22] MEDS ORDERED: NOREPINEPHRINE BITARTRATE 8,000 MCG in DEXTROSE 5%-WATER - 492 ML IV SCH (12:30)
--- NOTE | 2017-02-22 12:45 | PN ---
Teaching Attending Note Name of Resident: Niels Pineda ATTENDING PHYSICIAN STATEMENT I saw and evaluated the patient. I reviewed the resident's note and discussed the case with the resident. I agree with the resident's findings and plan as documented. SUBJECTIVE: Patient seen and examined in the ICU. Awake and responsive on NIPPV. Hypotensive despite 3 liters IVF boluses. Increasing lactic acid level. Strep pyogenes A noted on 2 blood cultures. Intake & Output 02/19/17 02/20/17 02/21/17 02/22/17 23:59 23:59 23:59 23:59 Intake Total 100 100 Balance 100 100 Weight 135 lb Last Vital Signs Temp Pulse Resp BP Pulse Ox 99.6 F 86 18 80/52 97 02/22/17 10:00 02/22/17 10:15 02/22/17 10:00 02/22/17 10:00 02/22/17 10:15 Active Medications Acetaminophen (Tylenol Suppository -) 650 mg HI Q6H PRN PRN Reason: FEVER OR PAIN Apixaban (Eliquis -) 2.5 mg PO BID [facility] Last Admin: 02/22/17 10:21 Dose: 2.5 mg Vancomycin HCl 1,250 mg/ (Dextrose) 250 mls @ 250 mls/hr IVPB DAILY [facility] PRN Reason: Protocol Piperacillin Sod/Tazobactam Sod (Zosyn 3.375gm Ivpb (Pre-Docked)) 50 mls @ 100 mls/hr IVPB Q8H-IV [facility] PRN Reason: Protocol Last Admin: 02/22/17 10:12 Dose: 100 mls/hr Dextrose/Sodium Chloride (D5-Ns -) 1,000 mls @ 125 mls/hr IV ASDIR [facility] Last Admin: 02/22/17 08:00 Dose: Not Given Norepinephrine Bitartrate 8, (000 mcg/ Dextrose) 500 mls @ 18.75 mls/hr IV TITR [facility]; 5 MCG/MIN PRN Reason: Protocol Metoprolol Tartrate (Lopressor -) 25 mg PO BID [facility] Last Admin: 02/22/17 10:20 Dose: Not Given Nystatin (Nystop Powder -) 1 applic TP DAILY [facility] Last Admin: 02/22/17 10:20 Dose: 1 applic Constitutional: Yes: Awake and responsive, mildly tachpneic on NIPPV Eyes: Yes: (-) Icterus Cardiovascular: Yes: Tachycardia, Pulse Irregular, S2 Respiratory: Yes: Diminished at the bases, bilateral rhonchi Gastrointestinal: Yes: Soft Extremities: Yes: RLE BKA, LLE severe lymphedema, warm to touch Laboratory Results - last 24 hr 02/21/17 02/21/17 02/21/17 14:19 14:19 14:20 WBC 7.5 RBC 3.27 L Hgb 9.3 L Hct 28.6 L MCV 87.5 MCHC 32.6 RDW 16.3 H Plt Count 124 L MPV 8.4 Neutrophils % 84.8 H Lymphocytes % 1.4 L Monocytes % 0.4 L Eosinophils % 13.3 H Basophils % 0.1 Band Neutrophils Metamyelocytes Differential Comment Platelet Estimate PTT (Actin FS) Puncture Site Patient Temperature ABG pH ABG pCO2 at Pt Temp ABG pO2 at Pt Temp ABG HCO3 ABG O2 Sat (Measured) ABG O2 Content ABG Base Excess Paulino Test VBG pH POC VBG pCO2 POC VBG pO2 Mixed VBG HCO3 O2 Delivery Device Oxygen Flow Rate PEEP Sodium 134 L Potassium 3.6 Chloride 98 Carbon Dioxide 22 Anion Gap 14 BUN 51 H Creatinine 1.4 H Creat Clearance w eGFR 35.74 POC Glucometer Random Glucose 78 Lactic Acid Calcium 8.1 L Phosphorus 3.2 Magnesium 1.2 L Total Bilirubin 1.2 H AST 30 ALT 25 Alkaline Phosphatase 62 Creatine Kinase CK-MB (CK-2) Troponin I Total Protein 5.9 L Albumin 2.2 L TSH Urine Color Urine Appearance Urine pH Ur Specific [place] Urine Protein Urine Glucose (UA) Urine Ketones Urine Blood Urine Nitrite Urine Bilirubin Urine Urobilinogen Ur Leukocyte Esterase Urine RBC Urine WBC Ur Epithelial Cells Hyaline Casts Granular Casts Urine Mucus Stool Occult Blood 02/21/17 02/21/17 02/21/17 14:55 15:00 15:45 WBC RBC Hgb Hct MCV MCHC RDW Plt Count MPV Neutrophils % Lymphocytes % Monocytes % Eosinophils % Basophils % Band Neutrophils Metamyelocytes Differential Comment Platelet Estimate PTT (Actin FS) Puncture Site Patient Temperature ABG pH ABG pCO2 at Pt Temp ABG pO2 at Pt Temp ABG HCO3 ABG O2 Sat (Measured) ABG O2 Content ABG Base Excess Paulino Test VBG pH POC VBG pCO2 POC VBG pO2 Mixed VBG HCO3 O2 Delivery Device Oxygen Flow Rate PEEP Sodium Potassium Chloride Carbon Dioxide Anion Gap BUN Creatinine Creat Clearance w eGFR POC Glucometer Random Glucose Lactic Acid 4.171 H* Calcium Phosphorus Magnesium Total Bilirubin AST ALT Alkaline Phosphatase Creatine Kinase CK-MB (CK-2) Troponin I Total Protein Albumin TSH Urine Color Dkyellow Urine Appearance Slcloudy Urine pH 5.0 Ur Specific [place] 1.017 Urine Protein 1+ H Urine Glucose (UA) Negative Urine Ketones Negative Urine Blood 1+ H Urine Nitrite Negative Urine Bilirubin Negative Urine Urobilinogen Negative Ur Leukocyte Esterase Trace H Urine RBC 1 Urine WBC 4 Ur Epithelial Cells Rare Hyaline Casts 3 Granular Casts 3 Urine Mucus Rare Stool Occult Blood Negative 02/21/17 02/21/17 02/21/17 15:45 16:30 17:00 WBC RBC Hgb Hct MCV MCHC RDW Plt Count MPV Neutrophils % Lymphocytes % Monocytes % Eosinophils % Basophils % Band Neutrophils Metamyelocytes Differential Comment Platelet Estimate PTT (Actin FS) 41.0 H Puncture Site Patient Temperature ABG pH ABG pCO2 at Pt Temp ABG pO2 at Pt Temp ABG HCO3 ABG O2 Sat (Measured) ABG O2 Content ABG Base Excess Paulino Test VBG pH 7.44 H POC VBG pCO2 34.2 L POC VBG pO2 19.7 L* Mixed VBG HCO3 23.1 O2 Delivery Device Oxygen Flow Rate PEEP Sodium Potassium Chloride Carbon Dioxide Anion Gap BUN Creatinine Creat Clearance w eGFR POC Glucometer Random Glucose Lactic Acid Calcium Phosphorus Magnesium Total Bilirubin AST ALT Alkaline Phosphatase Creatine Kinase CK-MB (CK-2) Troponin I Total Protein Albumin TSH 0.76 Urine Color Urine Appearance Urine pH Ur Specific [place] Urine Protein Urine Glucose (UA) Urine Ketones Urine Blood Urine Nitrite Urine Bilirubin Urine Urobilinogen Ur Leukocyte Esterase Urine RBC Urine WBC Ur Epithelial Cells Hyaline Casts Granular Casts Urine Mucus Stool Occult Blood 02/21/17 02/21/17 02/22/17 19:35 21:45 05:17 WBC 1.8 L* D RBC 3.16 L Hgb 9.1 L Hct 28.3 L MCV 89.4 MCHC 32.0 RDW 16.0 H Plt Count 60 L D MPV 8.7 Neutrophils % 90.0 H Lymphocytes % 8.0 D Monocytes % Eosinophils % Basophils % Band Neutrophils 1.0 Metamyelocytes 1 Differential Comment Manual diff done Platelet Estimate Decreased PTT (Actin FS) Puncture Site Patient Temperature ABG pH ABG pCO2 at Pt Temp ABG pO2 at Pt Temp ABG HCO3 ABG O2 Sat (Measured) ABG O2 Content ABG Base Excess Paulino Test VBG pH POC VBG pCO2 POC VBG pO2 Mixed VBG HCO3 O2 Delivery Device Oxygen Flow Rate PEEP Sodium Potassium Chloride Carbon Dioxide Anion Gap BUN Creatinine Creat Clearance w eGFR POC Glucometer Random Glucose Lactic Acid 3.890 H* Calcium Phosphorus Magnesium Total Bilirubin AST ALT Alkaline Phosphatase Creatine Kinase 168 CK-MB (CK-2) 2.025 Troponin I 0.51 H Total Protein Albumin TSH Urine Color Urine Appearance Urine pH Ur Specific [place] Urine Protein Urine Glucose (UA) Urine Ketones Urine Blood Urine Nitrite Urine Bilirubin Urine Urobilinogen Ur Leukocyte Esterase Urine RBC Urine WBC Ur Epithelial Cells Hyaline Casts Granular Casts Urine Mucus Stool Occult Blood 02/22/17 02/22/17 02/22/17 05:17 05:17 07:02 WBC RBC Hgb Hct MCV MCHC RDW Plt Count MPV Neutrophils % Lymphocytes % Monocytes % Eosinophils % Basophils % Band Neutrophils Metamyelocytes Differential Comment Platelet Estimate PTT (Actin FS) Puncture Site Right radial Patient Temperature 102.6 ABG pH 7.34 L ABG pCO2 at Pt Temp 40.1 ABG pO2 at Pt Temp 98.1 ABG HCO3 20.6 L ABG O2 Sat (Measured) 96.1 ABG O2 Content 12.0 L ABG Base Excess -3.6 L Paulino Test Positive VBG pH POC VBG pCO2 POC VBG pO2 Mixed VBG HCO3 O2 Delivery Device Aerosol mask Oxygen Flow Rate 100% PEEP 0.0 Sodium 135 L Potassium 3.5 Chloride 99 Carbon Dioxide 22 Anion Gap 14 BUN 56 H Creatinine 1.6 H Creat Clearance w eGFR 30.63 POC Glucometer Random Glucose 49 L* D Lactic Acid Calcium 7.8 L Phosphorus 3.3 Cancelled Magnesium 2.1 D Cancelled Total Bilirubin 1.5 H D AST 37 D ALT 21 Alkaline Phosphatase 40 L D Creatine Kinase CK-MB (CK-2) Troponin I Total Protein 5.3 L Albumin 1.9 L TSH Urine Color Urine Appearance Urine pH Ur Specific [place] Urine Protein Urine Glucose (UA) Urine Ketones Urine Blood Urine Nitrite Urine Bilirubin Urine Urobilinogen Ur Leukocyte Esterase Urine RBC Urine WBC Ur Epithelial Cells Hyaline Casts Granular Casts Urine Mucus Stool Occult Blood 02/22/17 02/22/17 02/22/17 07:29 08:20 11:27 WBC RBC Hgb Hct MCV MCHC RDW Plt Count MPV Neutrophils % Lymphocytes % Monocytes % Eosinophils % Basophils % Band Neutrophils Metamyelocytes Differential Comment Platelet Estimate PTT (Actin FS) Puncture Site Patient Temperature ABG pH ABG pCO2 at Pt Temp ABG pO2 at Pt Temp ABG HCO3 ABG O2 Sat (Measured) ABG O2 Content ABG Base Excess Paulino Test VBG pH POC VBG pCO2 POC VBG pO2 Mixed VBG HCO3 O2 Delivery Device Oxygen Flow Rate PEEP Sodium Potassium Chloride Carbon Dioxide Anion Gap BUN Creatinine Creat Clearance w eGFR POC Glucometer < 50 [id number] Random Glucose Lactic Acid 5.802 H* Calcium Phosphorus Magnesium Total Bilirubin AST ALT Alkaline Phosphatase Creatine Kinase CK-MB (CK-2) Troponin I Total Protein Albumin TSH Urine Color Urine Appearance Urine pH Ur Specific [place] Urine Protein Urine Glucose (UA) Urine Ketones Urine Blood Urine Nitrite Urine Bilirubin Urine Urobilinogen Ur Leukocyte Esterase Urine RBC Urine WBC Ur Epithelial Cells Hyaline Casts Granular Casts Urine Mucus Stool Occult Blood Problem List - Problems (1) Atrial fibrillation, new onset Code(s): I48.91 - UNSPECIFIED ATRIAL FIBRILLATION (2) Cellulitis Code(s): L03.90 - CELLULITIS, UNSPECIFIED Qualifiers: Site of cellulitis: extremity Site of cellulitis of extremity: lower extremity Laterality: left Qualified Code(s): L03.116 - Cellulitis of left lower limb (3) DVT (deep venous thrombosis) Code(s): I82.409 - ACUTE EMBOLISM AND THOMBOS UNSP DEEP VN UNSP LOWER EXTREMITY Qualifiers: DVT location: lower extremity Affected thrombotic vein of extremity: popliteal Laterality: left Chronicity: acute Qualified Code(s): I82.432 - Acute embolism and thrombosis of left popliteal vein (4) Fever chills Code(s): R50.9 - FEVER, UNSPECIFIED (5) Renal insufficiency Code(s): N28.9 - DISORDER OF KIDNEY AND URETER, UNSPECIFIED Assessment/Plan (?) Toxic shock Suspected RLL PNA ABX per ID -> Add Clindamycin 900mg Q8 due to suspicion for Toxic shock IVF O2 for sat >90% NIPPV as needed Would AC with IV Heparin for now D/C Eliquis Follow CVP Follow final cultures Check sputum Local wound care Pressors to maintain MAP > 65 ICU monitoring Critical care time spent reviewing chart, evaluating patient and formulating plan [address] Sanches
--- NOTE | 2017-02-22 13:00 | PROC ---
Central Line Insertion Indication: Poor Venous Access, Sepsis, Vasopressor Risks and Benefits Explained: Yes Consent on Chart: Yes Central Line: Triple Lumen Catheter Anesthesia: 1% Lidocaine Sterile Technique: Yes Ultrasound Guided Assistance: Yes Position: Right Internal Jugular Post Insertion: Yes: Bilateral Breath Sounds, Chest X-Ray Ordered Sterile Dressing Applied: Yes
[2017-02-22] MEDS ORDERED: PT OWN MED DRAWER 7, Y5N ONE (13:35)
[2017-02-22] MEDS: CLINDAMYCIN 900 MG PREMIX IVPB 50 ML IVPB SCH ×2 (14:09→17:31)
[2017-02-22] MEDS ORDERED: HEPARIN NA (PORCINE) 5,000 UNITS/ML 1ML VIAL IVPUSH PRN ×2 (15:17)
[2017-02-22] MEDS ORDERED: HEPARIN INFUSION - 500 ML IVPB SCH (15:30)
--- NOTE | 2017-02-22 15:51 | PN ---
Progress Note, Physician - Current Medication List Current Medications: Active Medications Acetaminophen (Tylenol Suppository -) 650 mg [place] Q6H PRN PRN Reason: FEVER OR PAIN Apixaban (Eliquis -) 2.5 mg PO BID FAMILIA Last Admin: 02/22/17 10:21 Dose: 2.5 mg Heparin Sodium (Porcine) (Heparin -) 1,000 unit IVPUSH PRN PRN PRN Reason: Heparin Heparin Sodium (Porcine) (Heparin -) 5,000 unit IVPUSH PRN PRN PRN Reason: Heparin Vancomycin HCl 1,250 mg/ (Dextrose) 250 mls @ 250 mls/hr IVPB DAILY FAMILIA PRN Reason: Protocol Piperacillin Sod/Tazobactam Sod (Zosyn 3.375gm Ivpb (Pre-Docked)) 50 mls @ 100 mls/hr IVPB Q8H-IV FAMILIA PRN Reason: Protocol Last Admin: 02/22/17 10:12 Dose: 100 mls/hr Dextrose/Sodium Chloride (D5-Ns -) 1,000 mls @ 125 mls/hr IV ASDIR FAMILIA Last Admin: 02/22/17 08:00 Dose: Not Given Norepinephrine Bitartrate 8, (000 mcg/ Dextrose) 500 mls @ 18.75 mls/hr IV TITR FAMILIA; 5 MCG/MIN PRN Reason: Protocol Last Admin: 02/22/17 14:10 Dose: 37.5 mls/hr Clindamycin Phosphate (Cleocin 900 Mg Premix Ivpb -) 50 mls @ 100 mls/hr IVPB Q8H-IV FAMILIA Last Admin: 02/22/17 14:09 Dose: 100 mls/hr Heparin Sodium/Dextrose (Heparin Infusion -) 500 mls @ 16 mls/hr IVPB TITR FAMILIA ; 800 UNITS/HR PRN Reason: Protocol Metoprolol Tartrate (Lopressor -) 25 mg PO BID FAMILIA Last Admin: 02/22/17 10:20 Dose: Not Given Nystatin (Nystop Powder -) 1 applic TP DAILY FAMILIA Last Admin: 02/22/17 10:20 Dose: 1 applic - Objective Vital Signs: Vital Signs Temperature 99 F 02/22/17 14:07 Pulse Rate 82 02/22/17 15:07 Respiratory Rate 18 02/22/17 15:07 Blood Pressure 93/57 02/22/17 15:07 O2 Sat by Pulse Oximetry (%) 97 02/22/17 10:15 Constitutional: Yes: No Distress HENT: Yes: Atraumatic Neck: Yes: Supple Cardiovascular: Yes: Pulse Irregular Respiratory: Yes: Rhonchi Gastrointestinal: Yes: Normal Bowel Sounds Extremities: Yes: Other (LLEX CELLUILITIS WARM, RED) Neurological: Yes: Alert Labs: CBC, BMP 02/22/17 05:17 02/22/17 05:17 Problem List - Problems (1) Atrial fibrillation, new onset Assessment/Plan: ON IV HEPARIN Code(s): I48.91 - UNSPECIFIED ATRIAL FIBRILLATION (2) Cellulitis Assessment/Plan: ON IV ABX BCX SENT ID CONSULT Code(s): L03.90 - CELLULITIS, UNSPECIFIED Qualifiers: Site of cellulitis: extremity Site of cellulitis of extremity: lower extremity Laterality: left Qualified Code(s): L03.116 - Cellulitis of left lower limb (3) Hyperlipidemia Assessment/Plan: ON MEDS STABLE Code(s): E78.5 - HYPERLIPIDEMIA, UNSPECIFIED Qualifiers: Hyperlipidemia type: pure hypercholesterolemia Qualified Code(s): E78.00 - Pure hypercholesterolemia, unspecified; E78.0 - Pure hypercholesterolemia (4) DVT (deep venous thrombosis) Assessment/Plan: IV HEPARIN Code(s): I82.409 - ACUTE EMBOLISM AND THOMBOS UNSP DEEP VN UNSP LOWER EXTREMITY Qualifiers: DVT location: lower extremity Affected thrombotic vein of extremity: popliteal Laterality: left Chronicity: acute Qualified Code(s): I82.432 - Acute embolism and thrombosis of left popliteal vein (5) Fever chills Assessment/Plan: BCX IV ABX Code(s): R50.9 - FEVER, UNSPECIFIED (6) Hypertensive cardiovascular disease Assessment/Plan: BP LOW ON PRESSORS Code(s): I11.9 - HYPERTENSIVE HEART DISEASE WITHOUT HEART FAILURE Qualifiers: Heart failure presence: without heart failure Qualified Code(s): I11.9 - Hypertensive heart disease without heart failure (7) Lymphedema of left leg Code(s): I89.0 - LYMPHEDEMA, NOT ELSEWHERE CLASSIFIED (8) Renal insufficiency Code(s): N28.9 - DISORDER OF KIDNEY AND URETER, UNSPECIFIED (9) Rheumatoid arthritis Code(s): M06.9 - RHEUMATOID ARTHRITIS, UNSPECIFIED Qualifiers: Rheumatoid arthritis location: unspecified site (10) Sepsis Assessment/Plan: POSITVE BCX IV ABX Code(s): A41.9 - SEPSIS, UNSPECIFIED ORGANISM Assessment/Plan Laboratory Tests 02/21/17 02/21/17 02/21/17 14:19 14:19 14:20 WBC 7.5 RBC 3.27 L Hgb 9.3 L Hct 28.6 L MCV 87.5 MCHC 32.6 RDW 16.3 H Plt Count 124 L MPV 8.4 Neutrophils % 84.8 H Lymphocytes % 1.4 L Monocytes % 0.4 L Eosinophils % 13.3 H Basophils % 0.1 Band Neutrophils Metamyelocytes Differential Comment Platelet Estimate PTT (Actin FS) Puncture Site Patient Temperature ABG pH ABG pCO2 at Pt Temp ABG pO2 at Pt Temp ABG HCO3 ABG O2 Sat (Measured) ABG O2 Content ABG Base Excess Paulino Test VBG pH POC VBG pCO2 POC VBG pO2 Mixed VBG HCO3 O2 Delivery Device Oxygen Flow Rate PEEP Sodium 134 L Potassium 3.6 Chloride 98 Carbon Dioxide 22 Anion Gap 14 BUN 51 H Creatinine 1.4 H Creat Clearance w eGFR 35.74 POC Glucometer Random Glucose 78 Lactic Acid Calcium 8.1 L Phosphorus 3.2 Magnesium 1.2 L Total Bilirubin 1.2 H AST 30 ALT 25 Alkaline Phosphatase 62 Creatine Kinase CK-MB (CK-2) Troponin I Total Protein 5.9 L Albumin 2.2 L TSH Urine Color Urine Appearance Urine pH Ur Specific [place] Urine Protein Urine Glucose (UA) Urine Ketones Urine Blood Urine Nitrite Urine Bilirubin Urine Urobilinogen Ur Leukocyte Esterase Urine RBC Urine WBC Ur Epithelial Cells Hyaline Casts Granular Casts Urine Mucus Stool Occult Blood 02/21/17 02/21/17 02/21/17 14:55 15:00 15:45 WBC RBC Hgb Hct MCV MCHC RDW Plt Count MPV Neutrophils % Lymphocytes % Monocytes % Eosinophils % Basophils % Band Neutrophils Metamyelocytes Differential Comment Platelet Estimate PTT (Actin FS) Puncture Site Patient Temperature ABG pH ABG pCO2 at Pt Temp ABG pO2 at Pt Temp ABG HCO3 ABG O2 Sat (Measured) ABG O2 Content ABG Base Excess Paulino Test VBG pH POC VBG pCO2 POC VBG pO2 Mixed VBG HCO3 O2 Delivery Device Oxygen Flow Rate PEEP Sodium Potassium Chloride Carbon Dioxide Anion Gap BUN Creatinine Creat Clearance w eGFR POC Glucometer Random Glucose Lactic Acid 4.171 H* Calcium Phosphorus Magnesium Total Bilirubin AST ALT Alkaline Phosphatase Creatine Kinase CK-MB (CK-2) Troponin I Total Protein Albumin TSH Urine Color Dkyellow Urine Appearance Slcloudy Urine pH 5.0 Ur Specific [place] 1.017 Urine Protein 1+ H Urine Glucose (UA) Negative Urine Ketones Negative Urine Blood 1+ H Urine Nitrite Negative Urine Bilirubin Negative Urine Urobilinogen Negative Ur Leukocyte Esterase Trace H Urine RBC 1 Urine WBC 4 Ur Epithelial Cells Rare Hyaline Casts 3 Granular Casts 3 Urine Mucus Rare Stool Occult Blood Negative 02/21/17 02/21/17 02/21/17 15:45 16:30 17:00 WBC RBC Hgb Hct MCV MCHC RDW Plt Count MPV Neutrophils % Lymphocytes % Monocytes % Eosinophils % Basophils % Band Neutrophils Metamyelocytes Differential Comment Platelet Estimate PTT (Actin FS) 41.0 H Puncture Site Patient Temperature ABG pH ABG pCO2 at Pt Temp ABG pO2 at Pt Temp ABG HCO3 ABG O2 Sat (Measured) ABG O2 Content ABG Base Excess Paulino Test VBG pH 7.44 H POC VBG pCO2 34.2 L POC VBG pO2 19.7 L* Mixed VBG HCO3 23.1 O2 Delivery Device Oxygen Flow Rate PEEP Sodium Potassium Chloride Carbon Dioxide Anion Gap BUN Creatinine Creat Clearance w eGFR POC Glucometer Random Glucose Lactic Acid Calcium Phosphorus Magnesium Total Bilirubin AST ALT Alkaline Phosphatase Creatine Kinase CK-MB (CK-2) Troponin I Total Protein Albumin TSH 0.76 Urine Color Urine Appearance Urine pH Ur Specific [place] Urine Protein Urine Glucose (UA) Urine Ketones Urine Blood Urine Nitrite Urine Bilirubin Urine Urobilinogen Ur Leukocyte Esterase Urine RBC Urine WBC Ur Epithelial Cells Hyaline Casts Granular Casts Urine Mucus Stool Occult Blood 02/21/17 02/21/17 02/22/17 19:35 21:45 05:17 WBC 1.8 L* D RBC 3.16 L Hgb 9.1 L Hct 28.3 L MCV 89.4 MCHC 32.0 RDW 16.0 H Plt Count 60 L D MPV 8.7 Neutrophils % 90.0 H Lymphocytes % 8.0 D Monocytes % Eosinophils % Basophils % Band Neutrophils 1.0 Metamyelocytes 1 Differential Comment Manual diff done Platelet Estimate Decreased PTT (Actin FS) Puncture Site Patient Temperature ABG pH ABG pCO2 at Pt Temp ABG pO2 at Pt Temp ABG HCO3 ABG O2 Sat (Measured) ABG O2 Content ABG Base Excess Paulino Test VBG pH POC VBG pCO2 POC VBG pO2 Mixed VBG HCO3 O2 Delivery Device Oxygen Flow Rate PEEP Sodium Potassium Chloride Carbon Dioxide Anion Gap BUN Creatinine Creat Clearance w eGFR POC Glucometer Random Glucose Lactic Acid 3.890 H* Calcium Phosphorus Magnesium Total Bilirubin AST ALT Alkaline Phosphatase Creatine Kinase 168 CK-MB (CK-2) 2.025 Troponin I 0.51 H Total Protein Albumin TSH Urine Color Urine Appearance Urine pH Ur Specific [place] Urine Protein Urine Glucose (UA) Urine Ketones Urine Blood Urine Nitrite Urine Bilirubin Urine Urobilinogen Ur Leukocyte Esterase Urine RBC Urine WBC Ur Epithelial Cells Hyaline Casts Granular Casts Urine Mucus Stool Occult Blood 02/22/17 02/22/17 02/22/17 05:17 05:17 07:02 WBC RBC Hgb Hct MCV MCHC RDW Plt Count MPV Neutrophils % Lymphocytes % Monocytes % Eosinophils % Basophils % Band Neutrophils Metamyelocytes Differential Comment Platelet Estimate PTT (Actin FS) Puncture Site Right radial Patient Temperature 102.6 ABG pH 7.34 L ABG pCO2 at Pt Temp 40.1 ABG pO2 at Pt Temp 98.1 ABG HCO3 20.6 L ABG O2 Sat (Measured) 96.1 ABG O2 Content 12.0 L ABG Base Excess -3.6 L Paulino Test Positive VBG pH POC VBG pCO2 POC VBG pO2 Mixed VBG HCO3 O2 Delivery Device Aerosol mask Oxygen Flow Rate 100% PEEP 0.0 Sodium 135 L Potassium 3.5 Chloride 99 Carbon Dioxide 22 Anion Gap 14 BUN 56 H Creatinine 1.6 H Creat Clearance w eGFR 30.63 POC Glucometer Random Glucose 49 L* D Lactic Acid Calcium 7.8 L Phosphorus 3.3 Cancelled Magnesium 2.1 D Cancelled Total Bilirubin 1.5 H D AST 37 D ALT 21 Alkaline Phosphatase 40 L D Creatine Kinase CK-MB (CK-2) Troponin I Total Protein 5.3 L Albumin 1.9 L TSH Urine Color Urine Appearance Urine pH Ur Specific [place] Urine Protein Urine Glucose (UA) Urine Ketones Urine Blood Urine Nitrite Urine Bilirubin Urine Urobilinogen Ur Leukocyte Esterase Urine RBC Urine WBC Ur Epithelial Cells Hyaline Casts Granular Casts Urine Mucus Stool Occult Blood 02/22/17 02/22/17 02/22/17 07:29 08:20 11:27 WBC RBC Hgb Hct MCV MCHC RDW Plt Count MPV Neutrophils % Lymphocytes % Monocytes % Eosinophils % Basophils % Band Neutrophils Metamyelocytes Differential Comment Platelet Estimate PTT (Actin FS) Puncture Site Patient Temperature ABG pH ABG pCO2 at Pt Temp ABG pO2 at Pt Temp ABG HCO3 ABG O2 Sat (Measured) ABG O2 Content ABG Base Excess Paulino Test VBG pH POC VBG pCO2 POC VBG pO2 Mixed VBG HCO3 O2 Delivery Device Oxygen Flow Rate PEEP Sodium Potassium Chloride Carbon Dioxide Anion Gap BUN Creatinine Creat Clearance w eGFR POC Glucometer < 50 [phone] Random Glucose Lactic Acid 5.802 H* Calcium Phosphorus Magnesium Total Bilirubin AST ALT Alkaline Phosphatase Creatine Kinase CK-MB (CK-2) Troponin I Total Protein Albumin TSH Urine Color Urine Appearance Urine pH Ur Specific [place] Urine Protein Urine Glucose (UA) Urine Ketones Urine Blood Urine Nitrite Urine Bilirubin Urine Urobilinogen Ur Leukocyte Esterase Urine RBC Urine WBC Ur Epithelial Cells Hyaline Casts Granular Casts Urine Mucus Stool Occult Blood 02/22/17 13:05 WBC RBC Hgb Hct MCV MCHC RDW Plt Count MPV Neutrophils % Lymphocytes % Monocytes % Eosinophils % Basophils % Band Neutrophils Metamyelocytes Differential Comment Platelet Estimate PTT (Actin FS) Puncture Site Patient Temperature ABG pH ABG pCO2 at Pt Temp ABG pO2 at Pt Temp ABG HCO3 ABG O2 Sat (Measured) ABG O2 Content ABG Base Excess Paulino Test VBG pH POC VBG pCO2 POC VBG pO2 Mixed VBG HCO3 O2 Delivery Device Oxygen Flow Rate PEEP Sodium Potassium Chloride Carbon Dioxide Anion Gap BUN Creatinine Creat Clearance w eGFR POC Glucometer Random Glucose Lactic Acid 6.785 H* Calcium Phosphorus Magnesium Total Bilirubin AST ALT Alkaline Phosphatase Creatine Kinase CK-MB (CK-2) Troponin I Total Protein Albumin TSH Urine Color Urine Appearance Urine pH Ur Specific [place] Urine Protein Urine Glucose (UA) Urine Ketones Urine Blood Urine Nitrite Urine Bilirubin Urine Urobilinogen Ur Leukocyte Esterase Urine RBC Urine WBC Ur Epithelial Cells Hyaline Casts Granular Casts Urine Mucus Stool Occult Blood CC TIME 30 MIN
--- NOTE | 2017-02-22 17:36 | PN ---
Progress Note, Physician History of Present Illness: patient looks much more better than yesterday much more awake and alert was started on pressors and developed some blue coloration of the fingers which has improved pressors coming down patients family in the room leg also looking much better - Current Medication List Current Medications: Active Medications Acetaminophen (Tylenol Suppository -) 650 mg [place] Q6H PRN PRN Reason: FEVER OR PAIN Apixaban (Eliquis -) 2.5 mg PO BID FAMILIA Last Admin: 02/22/17 10:21 Dose: 2.5 mg Heparin Sodium (Porcine) (Heparin -) 1,000 unit IVPUSH PRN PRN PRN Reason: Heparin Heparin Sodium (Porcine) (Heparin -) 5,000 unit IVPUSH PRN PRN PRN Reason: Heparin Last Admin: 02/22/17 16:00 Dose: 5,000 unit Vancomycin HCl 1,250 mg/ (Dextrose) 250 mls @ 250 mls/hr IVPB DAILY FAMILIA PRN Reason: Protocol Piperacillin Sod/Tazobactam Sod (Zosyn 3.375gm Ivpb (Pre-Docked)) 50 mls @ 100 mls/hr IVPB Q8H-IV FAMILIA PRN Reason: Protocol Last Admin: 02/22/17 10:12 Dose: 100 mls/hr Dextrose/Sodium Chloride (D5-Ns -) 1,000 mls @ 125 mls/hr IV ASDIR FAMILIA Last Admin: 02/22/17 08:00 Dose: Not Given Norepinephrine Bitartrate 8, (000 mcg/ Dextrose) 500 mls @ 18.75 mls/hr IV TITR FAMILIA; 5 MCG/MIN PRN Reason: Protocol Last Admin: 02/22/17 14:10 Dose: 37.5 mls/hr Clindamycin Phosphate (Cleocin 900 Mg Premix Ivpb -) 50 mls @ 100 mls/hr IVPB Q8H-IV FAMILIA Last Admin: 02/22/17 14:09 Dose: 100 mls/hr Heparin Sodium/Dextrose (Heparin Infusion -) 500 mls @ 16 mls/hr IVPB TITR FAMILIA ; 800 UNITS/HR PRN Reason: Protocol Last Admin: 02/22/17 15:59 Dose: 16 mls/hr Metoprolol Tartrate (Lopressor -) 25 mg PO BID FAMILIA Last Admin: 02/22/17 10:20 Dose: Not Given Nystatin (Nystop Powder -) 1 applic TP DAILY FAMILIA Last Admin: 02/22/17 10:20 Dose: 1 applic - Objective Vital Signs: Vital Signs Temperature 98.6 F 02/22/17 16:00 Pulse Rate 92 H 02/22/17 17:00 Respiratory Rate 18 02/22/17 17:00 Blood Pressure 90/46 02/22/17 17:00 O2 Sat by Pulse Oximetry (%) 97 02/22/17 10:15 Constitutional: Yes: Calm Neck: Yes: Supple, Trachea Midline Cardiovascular: Yes: Regular Rate and Rhythm Respiratory: Yes: Regular, On Venti-Mask Gastrointestinal: Yes: Normal Bowel Sounds, Soft Musculoskeletal: Yes: Other Extremities: Yes: Other (patient leg is much less erythematous than yesterday overall lot of improvement) Integumentary: Yes: Erythema (resolving) Wound/Incision: Yes: Other Neurological: Yes: Alert, Oriented Psychiatric: Yes: Alert, Oriented Labs: CBC, BMP 02/22/17 05:17 02/22/17 05:17 Assessment/Plan Problem List - Problems (1) Atrial fibrillation, new onset Code(s): I48.91 - UNSPECIFIED ATRIAL FIBRILLATION (2) Cellulitis Code(s): L03.90 - CELLULITIS, UNSPECIFIED Qualifiers: Site of cellulitis: extremity Site of cellulitis of extremity: lower extremity Laterality: left Qualified Code(s): L03.116 - Cellulitis of left lower limb (3) DVT (deep venous thrombosis) Code(s): I82.409 - ACUTE EMBOLISM AND THOMBOS UNSP DEEP VN UNSP LOWER EXTREMITY Qualifiers: DVT location: lower extremity Affected thrombotic vein of extremity: popliteal Laterality: left Chronicity: acute Qualified Code(s): I82.432 - Acute embolism and thrombosis of left popliteal vein (4) Fever chills Code(s): R50.9 - FEVER, UNSPECIFIED (5) Renal insufficiency Code(s): N28.9 - DISORDER OF KIDNEY AND URETER, UNSPECIFIED gm positive bacteremia organism noted plan d/w with family in detail continue current abx organism noted repeat blood cx tomorrow continue hydration rest as per icu cc time 40 min
--- NOTE | 2017-02-22 17:40 | CONSULT ---
Consult Consult Specialty:: Nephrology Reason for Consultation:: eelvated creatinine and lactic acidosis - History of Present Illness Chief Complaint: weakness and poor appetite History of Present Illness: Pt is an 86 year old female with pmhx of right BKA, lymphedema, HTN and osteoporosis who presents to the ER with poor appetite and weakness. She was found to have fever and admitted for sepsis. Pt was admitted to the ICU for treatment of cellulitis. I was called to evaluate her for elevated creatinine and for lactic acidosis. She is awake but not able to give much history. Family are at bedside and they deny history of CKD. - History Source History Provided By: Medical Record - Past Medical History Cardio/Vascular: Yes: AFIB, HTN Musculoskeletal: Yes: Other (lymphedema, osteoporosis) - Past Surgical History Additional Surgical History: BKA - Alcohol/Substance Use Hx Alcohol Use: No - Smoking History Smoking history: Never smoked Home Medications - Allergies Allergies/Adverse Reactions: Allergies Allergy/AdvReac Type Severity Reaction Status Date / Time No Known Allergies Allergy Verified 02/21/17 13:51 - Home Medications Home Medications: Ambulatory Orders Alendronate Na [Fosamax] 70 mg PO Q7D 02/21/17 Amlodipine Besylate [Norvasc -] 5 mg PO DAILY 02/21/17 Folic Acid 1 mg PO DAILY 02/21/17 Hydrochlorothiazide 25 mg PO DAILY 02/21/17 Hydroxychloroquine Sulfate 200 mg PO DAILY 02/21/17 Lovastatin [Altoprev] 20 mg PO DAILY 02/21/17 Methotrexate [Mexate -] 12.5 mg PO Q7D 02/21/17 Oxybutynin Chloride 5 mg PO DAILY 02/21/17 Potassium Chloride [Klor-Con] 20 meq PO DAILY 02/21/17 Family Disease History - Family Disease History Family History: Unable to Obtain Review of Systems Unable to obtain ROS, reason: pt fatigued - Review of Systems Constitutional: reports: Malaise Eyes: reports: No Symptoms Neck: reports: No Symptoms Respiratory: reports: SOB Gastrointestinal: reports: No Symptoms Musculoskeletal: reports: Muscle Weakness Neurological: reports: No Symptoms Psychiatric: reports: No Symptoms Physical Exam Vital Signs: Vital Signs Temperature 98.6 F 02/22/17 16:00 Pulse Rate 92 H 02/22/17 17:00 Respiratory Rate 18 02/22/17 17:00 Blood Pressure 90/46 02/22/17 17:00 O2 Sat by Pulse Oximetry (%) 97 02/22/17 10:15 Constitutional: Yes: Calm Eyes: Yes: Conjunctiva Clear Cardiovascular: Yes: S1, S2 Respiratory: Yes: Diminished, On Venti-Mask Gastrointestinal: Yes: Soft Renal/: Yes: Incontinence Musculoskeletal: Yes: Muscle Weakness Edema: Yes Neurological: Yes: Oriented Labs: CBC, BMP 02/22/17 05:17 02/22/17 05:17 Laboratory Tests 02/21/17 02/21/17 02/21/17 14:19 14:20 14:55 WBC 7.5 Hgb 9.3 L Plt Count 124 L Sodium Potassium Chloride Carbon Dioxide Anion Gap BUN Creatinine 1.4 H Random Glucose Lactic Acid Calcium Total Protein Albumin Urine Color Urine Appearance Urine pH Ur Specific [place] Urine Protein Urine Glucose (UA) Urine Ketones Urine Blood Urine Nitrite Urine Bilirubin Urine Urobilinogen Stool Occult Blood Negative 02/21/17 02/22/17 02/22/17 15:00 05:17 05:17 WBC 1.8 L* D Hgb 9.1 L Plt Count 60 L D Sodium 135 L Potassium 3.5 Chloride 99 Carbon Dioxide 22 Anion Gap 14 BUN 56 H Creatinine 1.6 H Random Glucose 49 L* D Lactic Acid Calcium 7.8 L Total Protein 5.3 L Albumin 1.9 L Urine Color Dkyellow Urine Appearance Slcloudy Urine pH 5.0 Ur Specific [place] 1.017 Urine Protein 1+ H Urine Glucose (UA) Negative Urine Ketones Negative Urine Blood 1+ H Urine Nitrite Negative Urine Bilirubin Negative Urine Urobilinogen Negative Stool Occult Blood 02/22/17 02/22/17 11:27 13:05 WBC Hgb Plt Count Sodium Potassium Chloride Carbon Dioxide Anion Gap BUN Creatinine Random Glucose Lactic Acid 5.802 H* 6.785 H* Calcium Total Protein Albumin Urine Color Urine Appearance Urine pH Ur Specific [place] Urine Protein Urine Glucose (UA) Urine Ketones Urine Blood Urine Nitrite Urine Bilirubin Urine Urobilinogen Stool Occult Blood Imaging - Results Chest X-ray: Report Reviewed Ultrasound: Report Reviewed Problem List - Problems (1) Atrial fibrillation, new onset Code(s): I48.91 - UNSPECIFIED ATRIAL FIBRILLATION (2) Cellulitis Code(s): L03.90 - CELLULITIS, UNSPECIFIED Qualifiers: Site of cellulitis: extremity Site of cellulitis of extremity: lower extremity Laterality: left Qualified Code(s): L03.116 - Cellulitis of left lower limb (3) DVT (deep venous thrombosis) Code(s): I82.409 - ACUTE EMBOLISM AND THOMBOS UNSP DEEP VN UNSP LOWER EXTREMITY Qualifiers: DVT location: lower extremity Affected thrombotic vein of extremity: popliteal Laterality: left Chronicity: acute Qualified Code(s): I82.432 - Acute embolism and thrombosis of left popliteal vein (4) Lymphedema of left leg Code(s): I89.0 - LYMPHEDEMA, NOT ELSEWHERE CLASSIFIED (5) Renal insufficiency Code(s): N28.9 - DISORDER OF KIDNEY AND URETER, UNSPECIFIED (6) Sepsis Code(s): A41.9 - SEPSIS, UNSPECIFIED ORGANISM Assessment/Plan Current Medications Generic Name Dose Route Start Last Admin Trade Name Freq PRN Reason Stop Dose Admin Acetaminophen 650 mg 02/22/17 05:36 Tylenol Suppository - [place] Q6H PRN FEVER OR PAIN Apixaban 2.5 mg 02/21/17 16:45 02/22/17 10:21 Eliquis - PO 2.5 mg BID FAMILIA Administration Heparin Sodium (Porcine) 1,000 unit 02/22/17 15:17 Heparin - IVPUSH PRN PRN Heparin Heparin Sodium (Porcine) 5,000 unit 02/22/17 15:17 02/22/17 16:00 Heparin - IVPUSH 5,000 unit PRN PRN Administration Heparin Vancomycin HCl 1,250 mg/ 250 mls @ 250 mls/hr 02/22/17 10:00 Dextrose IVPB DAILY FAMILIA Protocol Piperacillin Sod/Tazobactam Sod 50 mls @ 100 mls/hr 02/22/17 02:00 02/22/17 17: 31 Zosyn 3.375gm Ivpb (Pre-Docked) IVPB 100 mls/hr Q8H-IV FAMILIA Administration Protocol Dextrose/Sodium Chloride 1,000 mls @ 125 mls/hr 02/22/17 07:45 02/22/17 08:00 D5-Ns - IV Not Given ASDIR FAMILIA Norepinephrine Bitartrate 8, 500 mls @ 18.75 mls/hr 02/22/17 12:30 02/22/17 14: 10 000 mcg/ Dextrose IV 37.5 mls/hr TITR FAMILIA Administration Protocol 5 MCG/MIN Clindamycin Phosphate 50 mls @ 100 mls/hr 02/22/17 13:00 02/22/17 17:31 Cleocin 900 Mg Premix Ivpb - IVPB 100 mls/hr Q8H-IV FAMILIA Administration Heparin Sodium/Dextrose 500 mls @ 16 mls/hr 02/22/17 15:30 02/22/17 15:59 Heparin Infusion - IVPB 16 mls/hr TITR FAMILIA Administration Protocol 800 UNITS/HR Metoprolol Tartrate 25 mg 02/21/17 16:45 02/22/17 10:20 Lopressor - PO Not Given BID FAMILIA Nystatin 1 applic 02/22/17 10:00 02/22/17 10:20 Nystop Powder - TP 1 applic DAILY FAMILIA Administration Impression 1. azotemia/CKD - unclear if acute or chronic 2. lactic acidosis 3. sepsis 4. cellulitis 5. hypotensive 6. a-fib Plan - cont pressors to a MAP of 65 - trend lactic acid levels - called and discussed with ICU resident - send urine lytes and head of merchandise buying - cont with fluids, may need to decrease rate - monitor output, consider pineda catheter - case discussed with family - abx per ID Dr West
--- NOTE | 2017-02-22 18:09 | PN ---
Physical Exam: SUBJECTIVE: Patient seen and examined at bed side. patient sitting conformably smiling, in NAD, moderate respiratory distress, on venti mask, not complaining of dyspnea. arms cynotic R>L Denies cp, fevers, chills, n/v/d, patient and family request to be DNI/DNR status. lactic acid trending up, on one pressor despite 3 litter of fluid, cr inc, wbc decreased to 1.8, low grade temp, Peripheral Venous Blood Culture - Preliminary + Streptococcus Pyogenes Grp A in two bottles OBJECTIVE: Vital Signs Period Temp Pulse Resp BP Sys/Cotto Pulse Ox Last 24 Hr 98 F-1011 F 82-101 18-38 71-102/40-69 92-98 GENERAL: The patient is awake, alert, and fully oriented, in no acute distress. HEAD: Normal with no signs of trauma. EYES: PERRL, extraocular movements intact, sclera anicteric, conjunctiva clear. No ptosis. ENT: Ears normal, nares patent, oropharynx clear without exudates, moist mucous membranes. NECK: Trachea midline, full range of motion, supple. LUNGS: Diminished Breath Sounds at the Bases Bilaterally, Distant Breath Sounds HEART: Regular rate and rhythm, S1, S2 without murmur, rub or gallop. ABDOMEN: Soft, nontender, nondistended, normoactive bowel sounds, no guarding, no rebound, no hepatosplenomegaly, no masses. EXTREMITIES: Right BKA, Edema LLE R>L NEUROLOGICAL: no facial asymmetry, Normal speech, gait not observed. PSYCH: Normal mood, normal affect. SKIN: Warm, dry, normal turgor, no rashes or lesions noted Laboratory Results - last 24 hr 02/21/17 02/21/17 02/22/17 19:35 21:45 05:17 WBC 1.8 L* D RBC 3.16 L Hgb 9.1 L Hct 28.3 L MCV 89.4 MCHC 32.0 RDW 16.0 H Plt Count 60 L D MPV 8.7 Neutrophils % 90.0 H Lymphocytes % 8.0 D Band Neutrophils 1.0 Metamyelocytes 1 Differential Comment Manual diff done Platelet Estimate Decreased Puncture Site Patient Temperature ABG pH ABG pCO2 at Pt Temp ABG pO2 at Pt Temp ABG HCO3 ABG O2 Sat (Measured) ABG O2 Content ABG Base Excess Paulino Test O2 Delivery Device Oxygen Flow Rate PEEP Sodium Potassium Chloride Carbon Dioxide Anion Gap BUN Creatinine Creat Clearance w eGFR POC Glucometer Random Glucose Lactic Acid 3.890 H* Calcium Phosphorus Magnesium Total Bilirubin AST ALT Alkaline Phosphatase Creatine Kinase 168 CK-MB (CK-2) 2.025 Troponin I 0.51 H Total Protein Albumin 02/22/17 02/22/17 02/22/17 05:17 05:17 07:02 WBC RBC Hgb Hct MCV MCHC RDW Plt Count MPV Neutrophils % Lymphocytes % Band Neutrophils Metamyelocytes Differential Comment Platelet Estimate Puncture Site Right radial Patient Temperature 102.6 ABG pH 7.34 L ABG pCO2 at Pt Temp 40.1 ABG pO2 at Pt Temp 98.1 ABG HCO3 20.6 L ABG O2 Sat (Measured) 96.1 ABG O2 Content 12.0 L ABG Base Excess -3.6 L Paulino Test Positive O2 Delivery Device Aerosol mask Oxygen Flow Rate 100% PEEP 0.0 Sodium 135 L Potassium 3.5 Chloride 99 Carbon Dioxide 22 Anion Gap 14 BUN 56 H Creatinine 1.6 H Creat Clearance w eGFR 30.63 POC Glucometer Random Glucose 49 L* D Lactic Acid Calcium 7.8 L Phosphorus 3.3 Cancelled Magnesium 2.1 D Cancelled Total Bilirubin 1.5 H D AST 37 D ALT 21 Alkaline Phosphatase 40 L D Creatine Kinase CK-MB (CK-2) Troponin I Total Protein 5.3 L Albumin 1.9 L 02/22/17 02/22/17 02/22/17 07:29 08:20 11:27 WBC RBC Hgb Hct MCV MCHC RDW Plt Count MPV Neutrophils % Lymphocytes % Band Neutrophils Metamyelocytes Differential Comment Platelet Estimate Puncture Site Patient Temperature ABG pH ABG pCO2 at Pt Temp ABG pO2 at Pt Temp ABG HCO3 ABG O2 Sat (Measured) ABG O2 Content ABG Base Excess Paulino Test O2 Delivery Device Oxygen Flow Rate PEEP Sodium Potassium Chloride Carbon Dioxide Anion Gap BUN Creatinine Creat Clearance w eGFR POC Glucometer < 50 [id number] Random Glucose Lactic Acid 5.802 H* Calcium Phosphorus Magnesium Total Bilirubin AST ALT Alkaline Phosphatase Creatine Kinase CK-MB (CK-2) Troponin I Total Protein Albumin 02/22/17 13:05 WBC RBC Hgb Hct MCV MCHC RDW Plt Count MPV Neutrophils % Lymphocytes % Band Neutrophils Metamyelocytes Differential Comment Platelet Estimate Puncture Site Patient Temperature ABG pH ABG pCO2 at Pt Temp ABG pO2 at Pt Temp ABG HCO3 ABG O2 Sat (Measured) ABG O2 Content ABG Base Excess Paulino Test O2 Delivery Device Oxygen Flow Rate PEEP Sodium Potassium Chloride Carbon Dioxide Anion Gap BUN Creatinine Creat Clearance w eGFR POC Glucometer Random Glucose Lactic Acid 6.785 H* Calcium Phosphorus Magnesium Total Bilirubin AST ALT Alkaline Phosphatase Creatine Kinase CK-MB (CK-2) Troponin I Total Protein Albumin Active Medications Generic Name Dose Route Start Last Admin Trade Name Freq PRN Reason Stop Dose Admin Acetaminophen 650 mg 02/22/17 05:36 Tylenol Suppository - [place] Q6H PRN FEVER OR PAIN Apixaban 2.5 mg 02/21/17 16:45 02/22/17 10:21 Eliquis - PO 2.5 mg BID FAMILIA Administration Heparin Sodium (Porcine) 1,000 unit 02/22/17 15:17 Heparin - IVPUSH PRN PRN Heparin Heparin Sodium (Porcine) 5,000 unit 02/22/17 15:17 02/22/17 16:00 Heparin - IVPUSH 5,000 unit PRN PRN Administration Heparin Vancomycin HCl 1,250 mg/ 250 mls @ 250 mls/hr 02/22/17 10:00 Dextrose IVPB DAILY FAMILIA Protocol Piperacillin Sod/Tazobactam Sod 50 mls @ 100 mls/hr 02/22/17 02:00 02/22/17 10: 12 Zosyn 3.375gm Ivpb (Pre-Docked) IVPB 100 mls/hr Q8H-IV FAMILIA Administration Protocol Dextrose/Sodium Chloride 1,000 mls @ 125 mls/hr 02/22/17 07:45 02/22/17 08:00 D5-Ns - IV Not Given ASDIR FAMILIA Norepinephrine Bitartrate 8, 500 mls @ 18.75 mls/hr 02/22/17 12:30 02/22/17 14: 10 000 mcg/ Dextrose IV 37.5 mls/hr TITR FAMILIA Administration Protocol 5 MCG/MIN Clindamycin Phosphate 50 mls @ 100 mls/hr 02/22/17 13:00 02/22/17 14:09 Cleocin 900 Mg Premix Ivpb - IVPB 100 mls/hr Q8H-IV FAMILIA Administration Heparin Sodium/Dextrose 500 mls @ 16 mls/hr 02/22/17 15:30 02/22/17 15:59 Heparin Infusion - IVPB 16 mls/hr TITR FAMILIA Administration Protocol 800 UNITS/HR Metoprolol Tartrate 25 mg 02/21/17 16:45 02/22/17 10:20 Lopressor - PO Not Given BID FAMILIA Nystatin 1 applic 02/22/17 10:00 02/22/17 10:20 Nystop Powder - TP 1 applic DAILY FAMILIA Administration ASSESSMENT/PLAN: 86 yo F h/o osteoporosis, HTN, ?dermoid tumor s/p R BKA, L knee replacement with severe lymphedema BIBEMS from home for feeling weak and poor appetite. found to be in septic, hypoglycemic, signs of end organ damage, lactic acid trending up, decreased WBC, respratory failure. 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 Continue Lipitor hold MAHNAZ-I/ARB once renal function and BP stabilizes sever septic shock 2/2 Cellulitis Preliminary + Streptococcus Pyogenes Grp A in 2 bottles ABX per ID -> Add Clindamycin 900mg Q8 due to suspicion for Toxic shock Follow final cultures Check sputum Local wound care Zosyn, Vancomycin Pressors to maintain MAP > 65 Follow CVP IVF DVT- D/C Eliquis started on heparin gtt Acute renal insufficiency- 2/2 prereanl azotemia 2/2 septic shock Hyperlipidemia- cont statin HTN- currently hypotensive on levophed, Clindamycin Rheumatoid arthritis DVT: heparin gtt PPI; not indicated FEN IVNS replete elect as needed regular diet. dispo: follow in ICU Visit type - Emergency Visit Emergency Visit: Yes ED Registration Date: 02/21/17 Care time: The patient presented to the Emergency Department on the above date and was hospitalized for further evaluation of their emergent condition. - New Patient This patient is new to me today: No - Critical Care Critical Care patient: Yes Total Critical Care Time (in minutes): 43 Critical Care Statement: The care of this patient involved high complexity decision making to prevent further life threatening deterioration of the patient 's condition and/or to evalute & treat vital organ system(s) failure or risk of failure.
[2017-02-22 18:37] LABS: MCH 28.4 pg (25.7-33.7); MCHC 31.4 g/dl (32.0-36.0); MEAN CELL VOLUME 90.5 fl (80-96); MEAN PLT VOLUME 9.3 fl (7.5-11.1); PLATELET COUNT 71 K/MM3 (134-434); RDW 17.2 % (11.6-15.6); WHITE BLOOD COUNT 11.7 K/mm3 (4.0-10.0)
[2017-02-22] MEDS: VANCOMYCIN 1,250 MG in DEXTROSE 5%-WATER - 250 ML IVPB SCH (19:47)
[2017-02-22 20:02] LABS: TROPONIN I 0.49 ng/ml (0.00-0.05)
[2017-02-22] MEDS ORDERED: VASOPRESSIN 50 UNITS in SODIUM CHLORIDE 97.5 ML IVPB SCH (21:00)
[2017-02-22] MEDS ORDERED: VASOPRESSIN 20 UNITS/ML VIAL IV ONE (21:04)
[2017-02-23] MEDS: CLINDAMYCIN 900 MG PREMIX IVPB 50 ML IVPB SCH ×2 (03:37→09:29)
[2017-02-23] MEDS: PIPERACILLIN/TAZOB 3.375 GM 50 ML IVPB SCH ×2 (03:38→09:29)
[2017-02-23] MEDS ORDERED: VASOPRESSIN 20 UNITS/ML VIAL IV ONE (04:03)
[2017-02-23] MEDS ORDERED: SODIUM CHLORIDE 0.9% 1000 ML INFUS.BAG IV ONE (04:21)
[2017-02-23] MEDS: morphine CARPU-JECT 2 MG/1 ML DISP.SYRIN IVPUSH PRN ×2 (05:32→10:14)
--- NOTE | 2017-02-23 05:55 | PN ---
Progress Note (short form) - Note Progress Note: Event Note: Pt becoming progressively hypotensive despite increasing pressors and volume resusitation. Showing signs of worsening end organ perfusion, oliguria and digital ischemia. Platelets dropping from septic coagulopathy, possibly low grade DIC from Group A strep bacteremia. Heparin stopped accordingly. Pt also becoming dyspneic, requiring morphine. She has already made herself DNR/DNI,now indicating she does not further aggressive measures as best we can understand her. Will leave morphine pushes PRN and have low threshold to start continuous infusion for comfort give very poor prognosis. Family to be contacted in early am to come to bedside. Palliative care already following. Dre Head ACNP [phone]
[2017-02-23 06:11] LABS: MCH 28.3 pg (25.7-33.7); MCHC 31.4 g/dl (32.0-36.0); MEAN CELL VOLUME 90.1 fl (80-96); RDW 17.1 % (11.6-15.6); WHITE BLOOD COUNT 18.6 K/mm3 (4.0-10.0)
[2017-02-23 06:32] LABS: COCKROFT - GAULT 18.8445; CREATININE 2.1 mg/dL (0.55-1.02); MAGNESIUM 1.9 mg/dL (1.8-2.4); PHOSPHOROUS 5.5 mg/dL (2.5-4.9)
[2017-02-23 06:46] LABS: CALCIUM 6.8 mg/dL (8.5-10.1)
[2017-02-23 07:21] LABS: URINE APPEARANCE TURBID; URINE BILIRUBIN NEGATIVE (NEGATIVE); URINE COLOR AMBER; URINE GLUCOSE (UA) 1+ (NEGATIVE); URINE KETONE NEGATIVE (NEGATIVE); URINE NITRITE NEGATIVE (NEGATIVE); URINE UROBILINOGEN NEGATIVE E.U./dl (0.2-1.0)
--- NOTE | 2017-02-23 07:21 | PN ---
Physical Exam: SUBJECTIVE: Patient seen and examined on Norepinephrine and added Vasopressin. patient hyper ventated at approximately rr 40/m urine out put 160cc/12h corrected ca++ 8.5 lactic acid trended down both hands cynotic, cold to touch, Left lower ext worm to touch and foot cynotic. Discussed with family current clinical picture, and they wish on continuing treatment with comfort care being priority. OBJECTIVE: Vital Signs Period Temp Pulse Resp BP Sys/Cotto Pulse Ox Last 24 Hr 98 F-1011 F 82-104 18-43 64-122/40-69 96-98 Laboratory Results - last 24 hr 02/22/17 02/22/17 02/22/17 05:17 05:17 05:17 WBC RBC Hgb Hct MCV MCHC RDW Plt Count 60 L D MPV Neutrophils % 90.0 H Lymphocytes % 8.0 D Band Neutrophils 1.0 Metamyelocytes 1 Differential Comment Manual diff done Platelet Estimate Decreased PTT (Actin FS) Sodium 135 L Potassium 3.5 Chloride 99 Carbon Dioxide 22 Anion Gap 14 BUN 56 H Creatinine 1.6 H Creat Clearance w eGFR 30.63 POC Glucometer Random Glucose 49 L* D Lactic Acid Calcium 7.8 L Phosphorus 3.3 Cancelled Magnesium 2.1 D Cancelled Total Bilirubin 1.5 H D AST 37 D ALT 21 Alkaline Phosphatase 40 L D Creatine Kinase Troponin I Total Protein 5.3 L Albumin 1.9 L 02/22/17 02/22/17 02/22/17 07:29 08:20 11:27 WBC RBC Hgb Hct MCV MCHC RDW Plt Count MPV Neutrophils % Lymphocytes % Band Neutrophils Metamyelocytes Differential Comment Platelet Estimate PTT (Actin FS) Sodium Potassium Chloride Carbon Dioxide Anion Gap BUN Creatinine Creat Clearance w eGFR POC Glucometer < 50 149.14456 Random Glucose Lactic Acid 5.802 H* Calcium Phosphorus Magnesium Total Bilirubin AST ALT Alkaline Phosphatase Creatine Kinase Troponin I Total Protein Albumin 02/22/17 02/22/17 02/22/17 13:05 18:25 19:00 WBC 11.7 H D RBC 3.14 L Hgb 8.9 L Hct 28.4 L MCV 90.5 MCHC 31.4 L RDW 17.2 H Plt Count 71 L MPV 9.3 Neutrophils % Lymphocytes % Band Neutrophils Metamyelocytes Differential Comment Platelet Estimate PTT (Actin FS) Sodium Potassium Chloride Carbon Dioxide Anion Gap BUN Creatinine Creat Clearance w eGFR POC Glucometer Random Glucose Lactic Acid 6.785 H* Calcium Phosphorus Magnesium Total Bilirubin AST ALT Alkaline Phosphatase Creatine Kinase 273 H D Troponin I 0.49 H Total Protein Albumin 02/22/17 02/22/17 02/23/17 19:00 22:00 05:35 WBC RBC Hgb Hct MCV MCHC RDW Plt Count MPV Neutrophils % Lymphocytes % Band Neutrophils Metamyelocytes Differential Comment Platelet Estimate PTT (Actin FS) 60.2 H D Sodium Potassium Chloride Carbon Dioxide Anion Gap BUN Creatinine Creat Clearance w eGFR POC Glucometer Random Glucose Lactic Acid 2.792 H* 2.272 H* Calcium Phosphorus Magnesium Total Bilirubin AST ALT Alkaline Phosphatase Creatine Kinase Troponin I Total Protein Albumin 02/23/17 02/23/17 05:35 05:35 WBC 18.6 H D RBC 3.07 L Hgb 8.7 L Hct 27.6 L MCV 90.1 MCHC 31.4 L RDW 17.1 H Plt Count MPV Neutrophils % Lymphocytes % Band Neutrophils Metamyelocytes Differential Comment Platelet Estimate PTT (Actin FS) Sodium 136 Potassium 4.3 D Chloride 102 Carbon Dioxide 18 L Anion Gap 16 BUN 64 H Creatinine 2.1 H D Creat Clearance w eGFR POC Glucometer Random Glucose 130 H D Lactic Acid Calcium 6.8 L* Phosphorus 5.5 H D Magnesium 1.9 Total Bilirubin AST ALT Alkaline Phosphatase Creatine Kinase Troponin I Total Protein Albumin Active Medications Generic Name Dose Route Start Last Admin Trade Name Freq PRN Reason Stop Dose Admin Acetaminophen 650 mg 02/22/17 05:36 02/22/17 05:30 Tylenol Suppository - NV 650 mg Q6H PRN Administration FEVER OR PAIN Vancomycin HCl 1,250 mg/ 250 mls @ 250 mls/hr 02/22/17 10:00 02/22/17 19:47 Dextrose IVPB 250 mls/hr DAILY FAMILIA Administration Protocol Piperacillin Sod/Tazobactam Sod 50 mls @ 100 mls/hr 02/22/17 02:00 02/23/17 03: 38 Zosyn 3.375gm Ivpb (Pre-Docked) IVPB 100 mls/hr Q8H-IV FAMILIA Administration Protocol Norepinephrine Bitartrate 8, 500 mls @ 18.75 mls/hr 02/22/17 12:30 02/22/17 14: 10 000 mcg/ Dextrose IV 37.5 mls/hr TITR FAMILIA Administration Protocol 5 MCG/MIN Clindamycin Phosphate 50 mls @ 100 mls/hr 02/22/17 13:00 02/23/17 03:37 Cleocin 900 Mg Premix Ivpb - IVPB 100 mls/hr Q8H-IV FAMILIA Administration Vasopressin 50 units/ Sodium 100 mls @ 4 mls/hr 02/22/17 21:00 02/22/17 21:52 Chloride IVPB 4 mls/hr ASDIR FAMILIA Administration Protocol 2 UNITS/HR Morphine Sulfate 2 mg 02/23/17 04:44 02/23/17 05:32 Morphine Injection - IVPUSH 2 mg Q2H PRN Administration SHORTNESS OF BREATH Nystatin 1 applic 02/22/17 10:00 02/22/17 10:20 Nystop Powder - TP 1 applic DAILY FAMILIA Administration ASSESSMENT/PLAN: family wishes for comfort care, asked for pressors to be stopped, morphine drip started. while family at bed side patient asystoli on monitor, no cornea or gag reflex, + doll eyes, no pulse palpated, no heart sounds heard. patient at 13:34 pm. Visit type - Emergency Visit Emergency Visit: Yes ED Registration Date: 02/21/17 Care time: The patient presented to the Emergency Department on the above date and was hospitalized for further evaluation of their emergent condition. - New Patient This patient is new to me today: No - Critical Care Critical Care patient: Yes Total Critical Care Time (in minutes): 58 Critical Care Statement: The care of this patient involved high complexity decision making to prevent further life threatening deterioration of the patient 's condition and/or to evalute & treat vital organ system(s) failure or risk of failure.
[2017-02-23 07:38] LABS: MEAN PLT VOLUME 8.9 fl (7.5-11.1); PLATELET COUNT 52 K/MM3 (134-434)
[2017-02-23 08:06] LABS: URINE BLOOD 3+ (NEGATIVE); URINE LEUK ESTERASE 2+ (NEGATIVE); URINE PROTEIN 2+ (NEGATIVE)
[2017-02-23 08:11] LABS: GRANULAR CASTS 6 /lpf; URINE BACTERIA FEW /hpf (NONE SEEN); URINE HYALINE CAST 6 /lpf; URINE MUCUS RARE; URINE RBC 165 /hpf (0-3); URINE WBC 131 /hpf (3-5)
--- NOTE | 2017-02-23 08:22 | EKG ---
Test Reason : Blood Pressure : / mmHG Vent. Rate : 103 BPM Atrial Rate : 074 BPM P-R Int : 000 ms QRS Dur : 090 ms QT Int : 306 ms P-R-T Axes : 000 -15 069 degrees QTc Int : 400 ms ATRIAL FIBRILLATION WITH RAPID VENTRICULAR RESPONSE RSR' OR QR PATTERN IN V1 SUGGESTS RIGHT VENTRICULAR CONDUCTION DELAY NONSPECIFIC T WAVE ABNORMALITY ABNORMAL ECG NO PREVIOUS ECGS AVAILABLE Confirmed by CHANTELL ESCOBEDO MD ([id number]) on 02/23/2017 8:21:37 AM Referred By: Confirmed By:CHANTELL ESCOBEDO MD
[2017-02-23 08:54] VITALS: TEMP 102
[2017-02-23] MEDS: NYSTATIN POWDER 100,000 UNITS/GM - 15 GM TOPICAL POWDER TP SCH (09:29)
--- NOTE | 2017-02-23 10:43 | PN ---
Progress Note, Physician History of Present Illness: Lethargic on 40% VM, continued fevers, on pressor support. - Current Medication List Current Medications: Active Medications Acetaminophen (Tylenol Suppository -) 650 mg [place] Q6H PRN PRN Reason: FEVER OR PAIN Last Admin: 02/22/17 05:30 Dose: 650 mg Vancomycin HCl 1,250 mg/ (Dextrose) 250 mls @ 250 mls/hr IVPB DAILY FAMILIA PRN Reason: Protocol Last Admin: 02/22/17 19:47 Dose: 250 mls/hr Piperacillin Sod/Tazobactam Sod (Zosyn 3.375gm Ivpb (Pre-Docked)) 50 mls @ 100 mls/hr IVPB Q8H-IV FAMILIA PRN Reason: Protocol Last Admin: 02/23/17 09:29 Dose: 100 mls/hr Norepinephrine Bitartrate 8, (000 mcg/ Dextrose) 500 mls @ 18.75 mls/hr IV TITR FAMILIA; 5 MCG/MIN PRN Reason: Protocol Last Admin: 02/22/17 14:10 Dose: 37.5 mls/hr Clindamycin Phosphate (Cleocin 900 Mg Premix Ivpb -) 50 mls @ 100 mls/hr IVPB Q8H-IV FAMILIA Last Admin: 02/23/17 09:29 Dose: 100 mls/hr Vasopressin 50 units/ Sodium (Chloride) 100 mls @ 4 mls/hr IVPB ASDIR FAMILIA; 2 UNITS/HR PRN Reason: Protocol Last Admin: 02/22/17 21:52 Dose: 4 mls/hr Morphine Sulfate (Morphine Injection -) 2 mg IVPUSH Q2H PRN PRN Reason: SHORTNESS OF BREATH Last Admin: 02/23/17 10:14 Dose: 2 mg Nystatin (Nystop Powder -) 1 applic TP DAILY FAMILIA Last Admin: 02/23/17 09:29 Dose: 1 applic - Objective Vital Signs: Vital Signs Temperature 102 F H 02/23/17 10:00 Pulse Rate 85 02/23/17 10:00 Respiratory Rate 22 02/23/17 10:00 Blood Pressure 101/45 02/23/17 10:00 O2 Sat by Pulse Oximetry (%) 96 02/22/17 10:45 Constitutional: Yes: No Distress, Calm Neck: Yes: Supple Cardiovascular: Yes: Pulse Irregular Respiratory: Yes: Regular, Diminished Gastrointestinal: Yes: Normal Bowel Sounds, Soft Extremities: Yes: Amputation (Rt BKA), Cyanosis (Left foot ischemia) Edema: Yes Edema: LLE: 3+ Labs: CBC, BMP 02/23/17 05:35 02/23/17 05:35 Problem List - Problems (1) Atrial fibrillation, new onset Code(s): I48.91 - UNSPECIFIED ATRIAL FIBRILLATION (2) Cellulitis Code(s): L03.90 - CELLULITIS, UNSPECIFIED Qualifiers: Site of cellulitis: extremity Site of cellulitis of extremity: lower extremity Laterality: left Qualified Code(s): L03.116 - Cellulitis of left lower limb (3) Fever chills Code(s): R50.9 - FEVER, UNSPECIFIED (4) Lymphedema of left leg Code(s): I89.0 - LYMPHEDEMA, NOT ELSEWHERE CLASSIFIED (5) Hypertensive cardiovascular disease Code(s): I11.9 - HYPERTENSIVE HEART DISEASE WITHOUT HEART FAILURE Qualifiers: Heart failure presence: without heart failure Qualified Code(s): I11.9 - Hypertensive heart disease without heart failure (6) Renal insufficiency Code(s): N28.9 - DISORDER OF KIDNEY AND URETER, UNSPECIFIED (7) Hyperlipidemia Code(s): E78.5 - HYPERLIPIDEMIA, UNSPECIFIED Qualifiers: Hyperlipidemia type: pure hypercholesterolemia Qualified Code(s): E78.00 - Pure hypercholesterolemia, unspecified; E78.0 - Pure hypercholesterolemia (8) Rheumatoid arthritis Code(s): M06.9 - RHEUMATOID ARTHRITIS, UNSPECIFIED Qualifiers: Rheumatoid arthritis location: unspecified site (9) Sepsis Code(s): A41.9 - SEPSIS, UNSPECIFIED ORGANISM Qualifiers: Sepsis type: Streptococcus group A Qualified Code(s): A40.0 - Sepsis due to streptococcus, group A Assessment/Plan 02/22/2017 Echo: Mild decreased LV fxn, mild LAE, mod MR, TR, mild MG 16 mmHg 1. Acute hypoxic respiratory failure referable to 2. Streptococcal pyogenese septic shock 2. Persistent atrial fibrillation [id number] score of 4 3. 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 Diastolic LV dysfunction with class 0 NYHA classification LV failure 5. Anemia and thrombocytopenia 6. Fever, possible cellulites 7. HTN 8. Hyperlipidemia 9. Acute on chronic kidney injury 10. Rheumatoid arthritis PLAN: 1. Titrate pressors to maintain MAP>65 mmHg, Lopressor held pending hemodynamic stability 2. Eliquis and heparin gtt held due to thrombocytopenia 3. Recommend initiating MAHNAZ-I/ARB once hemodynamics and renal function stabilizes 4. Antibiotic course per C&S the primary team 5. Palliative care following, DNR/DNI
[2017-02-23 11:04] LABS: ALBUMIN 1.6 g/dl (3.4-5.0)
--- NOTE | 2017-02-23 12:08 | PN ---
Teaching Attending Note Name of Resident: Niels Pineda ATTENDING PHYSICIAN STATEMENT I saw and evaluated the patient. I reviewed the resident's note and discussed the case with the resident. I agree with the resident's findings and plan as documented. SUBJECTIVE: Pt seen and examined in the ICU. Remains on NRB, tachypneic, lethargic. Vasopressin added to levophed gtt overnight. Family decided to make pt DNR/DNI with comfort measures. OBJECTIVE: Last Vital Signs Temp Pulse Resp BP Pulse Ox 102 F H 86 28 H 108/48 96 02/23/17 10:00 02/23/17 11:00 02/23/17 11:00 02/23/17 11:00 02/22/17 10:45 Intake & Output 02/20/17 02/21/17 02/22/17 02/23/17 23:59 23:59 23:59 23:59 Intake Total 100 2550 1700 Output Total 105 60 Balance 100 2445 1640 Weight 135 lb 134 lb 6.4 oz Gen: lethargic, tachypneic, facial mottling Heart: RRR Lung: scattered rhonchi Abd: soft, nontender Ext: + edema, R BKA, Left toes mottled CBC, BMP 02/23/17 05:35 02/23/17 05:35 Active Medications Acetaminophen (Tylenol Suppository -) 650 mg [place] Q6H PRN PRN Reason: FEVER OR PAIN Last Admin: 02/22/17 05:30 Dose: 650 mg Vancomycin HCl 1,250 mg/ (Dextrose) 250 mls @ 250 mls/hr IVPB DAILY FAMILIA PRN Reason: Protocol Last Admin: 02/22/17 19:47 Dose: 250 mls/hr Piperacillin Sod/Tazobactam Sod (Zosyn 3.375gm Ivpb (Pre-Docked)) 50 mls @ 100 mls/hr IVPB Q8H-IV FAMILIA PRN Reason: Protocol Last Admin: 02/23/17 09:29 Dose: 100 mls/hr Norepinephrine Bitartrate 8, (000 mcg/ Dextrose) 500 mls @ 18.75 mls/hr IV TITR FAMILIA; 5 MCG/MIN PRN Reason: Protocol Last Admin: 02/22/17 14:10 Dose: 37.5 mls/hr Clindamycin Phosphate (Cleocin 900 Mg Premix Ivpb -) 50 mls @ 100 mls/hr IVPB Q8H-IV FAMILIA Last Admin: 02/23/17 09:29 Dose: 100 mls/hr Vasopressin 50 units/ Sodium (Chloride) 100 mls @ 4 mls/hr IVPB ASDIR FAMILIA; 2 UNITS/HR PRN Reason: Protocol Last Admin: 02/22/17 21:52 Dose: 4 mls/hr Morphine Sulfate (Morphine Injection -) 2 mg IVPUSH Q2H PRN PRN Reason: SHORTNESS OF BREATH Last Admin: 02/23/17 10:14 Dose: 2 mg Nystatin (Nystop Powder -) 1 applic TP DAILY FAMILIA Last Admin: 02/23/17 09:29 Dose: 1 applic ASSESSMENT AND PLAN: Acute Hypoxic Respiratory Failure Streptococcal Pyogenese Bacteremia Septic Shock Multiorgan Dysfunction Syndrome Acute on Chronic Renal Failure Lactic Acidosis +Troponins likely Demand Ischemia Anemia/Thrombocytopenia r/o DIC CAD HTN Rheumatoid Arthritis - continue antibiotics - IVF - pressor support to maintain MAP >65 - O2 to keep SpO2 >90% - monitor CBC - monitor urine output, creatinine - trend lactate - morphine for comfort, may need morphine gtt - continue discussions regarding goals of care, they wish for continued medical treatment but with goal of comfort - pt DNR/DNI critical care time spent in reviewing chart, evaluating patient and formulating plan 40 min
--- NOTE | 2017-02-23 12:51 | PN ---
Progress Note, Physician History of Present Illness: prognosis looks grim patient now detoriating on 2 pressors toes ble lethargic leg looks bad - Current Medication List Current Medications: Active Medications Acetaminophen (Tylenol Suppository -) 650 mg PA Q6H PRN PRN Reason: FEVER OR PAIN Last Admin: 02/22/17 05:30 Dose: 650 mg Vancomycin HCl 1,250 mg/ (Dextrose) 250 mls @ 250 mls/hr IVPB DAILY FAMILIA PRN Reason: Protocol Last Admin: 02/22/17 19:47 Dose: 250 mls/hr Piperacillin Sod/Tazobactam Sod (Zosyn 3.375gm Ivpb (Pre-Docked)) 50 mls @ 100 mls/hr IVPB Q8H-IV FAMILIA PRN Reason: Protocol Last Admin: 02/23/17 09:29 Dose: 100 mls/hr Norepinephrine Bitartrate 8, (000 mcg/ Dextrose) 500 mls @ 18.75 mls/hr IV TITR FAMILIA; 5 MCG/MIN PRN Reason: Protocol Last Admin: 02/22/17 14:10 Dose: 37.5 mls/hr Clindamycin Phosphate (Cleocin 900 Mg Premix Ivpb -) 50 mls @ 100 mls/hr IVPB Q8H-IV FAMILIA Last Admin: 02/23/17 09:29 Dose: 100 mls/hr Vasopressin 50 units/ Sodium (Chloride) 100 mls @ 4 mls/hr IVPB ASDIR FAMILIA; 2 UNITS/HR PRN Reason: Protocol Last Admin: 02/22/17 21:52 Dose: 4 mls/hr Morphine Sulfate (Morphine Injection -) 2 mg IVPUSH Q2H PRN PRN Reason: SHORTNESS OF BREATH Last Admin: 02/23/17 10:14 Dose: 2 mg Nystatin (Nystop Powder -) 1 applic TP DAILY FAMILIA Last Admin: 02/23/17 09:29 Dose: 1 applic - Objective Vital Signs: Vital Signs Temperature 102 F H 02/23/17 10:00 Pulse Rate 84 02/23/17 12:00 Respiratory Rate 18 02/23/17 12:00 Blood Pressure 95/42 02/23/17 12:00 O2 Sat by Pulse Oximetry (%) 96 02/22/17 10:45 Constitutional: Yes: Other Cardiovascular: Yes: Bradycardia, Other (hypotensive) Respiratory: Yes: Regular, Poor Air Entry Gastrointestinal: Yes: Normal Bowel Sounds, Soft Musculoskeletal: Yes: Other Extremities: Yes: Erythema (of the rt leg bad), Other (blue toes and fingers) Neurological: Yes: Lethargy Psychiatric: Yes: Other Labs: CBC, BMP 02/23/17 05:35 02/23/17 05:35 Assessment/Plan Problem List - Problems (1) Atrial fibrillation, new onset Code(s): I48.91 - UNSPECIFIED ATRIAL FIBRILLATION (2) Cellulitis Code(s): L03.90 - CELLULITIS, UNSPECIFIED Qualifiers: Site of cellulitis: extremity Site of cellulitis of extremity: lower extremity Laterality: left Qualified Code(s): L03.116 - Cellulitis of left lower limb (3) DVT (deep venous thrombosis) Code(s): I82.409 - ACUTE EMBOLISM AND THOMBOS UNSP DEEP VN UNSP LOWER EXTREMITY Qualifiers: DVT location: lower extremity Affected thrombotic vein of extremity: popliteal Laterality: left Chronicity: acute Qualified Code(s): I82.432 - Acute embolism and thrombosis of left popliteal vein (4) Fever chills Code(s): R50.9 - FEVER, UNSPECIFIED (5) Renal insufficiency Code(s): N28.9 - DISORDER OF KIDNEY AND URETER, UNSPECIFIED gm positive bacteremia organism noted plan patient critical prognosis poor continue abx continue to monitor bp rest as per icu cc time 40 min
--- NOTE | 2017-02-23 13:37 | PN ---
Progress Note, Physician History of Present Illness: Pt seen and examined at bedside. Pt is lethargic. She remains in the ICU. - Current Medication List Current Medications: Active Medications Acetaminophen (Tylenol Suppository -) 650 mg HI Q6H PRN PRN Reason: FEVER OR PAIN Last Admin: 02/22/17 05:30 Dose: 650 mg Vancomycin HCl 1,250 mg/ (Dextrose) 250 mls @ 250 mls/hr IVPB DAILY FAMIILA PRN Reason: Protocol Last Admin: 02/22/17 19:47 Dose: 250 mls/hr Piperacillin Sod/Tazobactam Sod (Zosyn 3.375gm Ivpb (Pre-Docked)) 50 mls @ 100 mls/hr IVPB Q8H-IV FAMILIA PRN Reason: Protocol Last Admin: 02/23/17 09:29 Dose: 100 mls/hr Norepinephrine Bitartrate 8, (000 mcg/ Dextrose) 500 mls @ 18.75 mls/hr IV TITR FAMILIA; 5 MCG/MIN PRN Reason: Protocol Last Admin: 02/22/17 14:10 Dose: 37.5 mls/hr Clindamycin Phosphate (Cleocin 900 Mg Premix Ivpb -) 50 mls @ 100 mls/hr IVPB Q8H-IV FAMILIA Last Admin: 02/23/17 09:29 Dose: 100 mls/hr Vasopressin 50 units/ Sodium (Chloride) 100 mls @ 4 mls/hr IVPB ASDIR FAMILIA; 2 UNITS/HR PRN Reason: Protocol Last Admin: 02/22/17 21:52 Dose: 4 mls/hr Morphine Sulfate (Morphine Injection -) 2 mg IVPUSH Q2H PRN PRN Reason: SHORTNESS OF BREATH Last Admin: 02/23/17 10:14 Dose: 2 mg Nystatin (Nystop Powder -) 1 applic TP DAILY FAMILIA Last Admin: 02/23/17 09:29 Dose: 1 applic - Objective Vital Signs: Vital Signs Temperature 102 F H 02/23/17 10:00 Pulse Rate 84 02/23/17 12:00 Respiratory Rate 18 02/23/17 12:00 Blood Pressure 95/42 02/23/17 12:00 O2 Sat by Pulse Oximetry (%) 96 02/22/17 10:45 Constitutional: Yes: Calm Eyes: Yes: Conjunctiva Clear Cardiovascular: Yes: S1, S2 Respiratory: Yes: Diminished, On Venti-Mask Gastrointestinal: Yes: Soft Genitourinary: Yes: Mckeon Present, Oliguria Musculoskeletal: Yes: Muscle Weakness Edema: Yes Neurological: Yes: Lethargy Labs: CBC, BMP 02/23/17 05:35 02/23/17 05:35 - ....Imaging Chest X-ray: Report Reviewed Problem List - Problems (1) Atrial fibrillation, new onset Code(s): I48.91 - UNSPECIFIED ATRIAL FIBRILLATION (2) Cellulitis Code(s): L03.90 - CELLULITIS, UNSPECIFIED Qualifiers: Site of cellulitis: extremity Site of cellulitis of extremity: lower extremity Laterality: left Qualified Code(s): L03.116 - Cellulitis of left lower limb (3) DVT (deep venous thrombosis) Code(s): I82.409 - ACUTE EMBOLISM AND THOMBOS UNSP DEEP VN UNSP LOWER EXTREMITY Qualifiers: DVT location: lower extremity Affected thrombotic vein of extremity: popliteal Laterality: left Chronicity: acute Qualified Code(s): I82.432 - Acute embolism and thrombosis of left popliteal vein (4) Lymphedema of left leg Code(s): I89.0 - LYMPHEDEMA, NOT ELSEWHERE CLASSIFIED (5) Renal insufficiency Code(s): N28.9 - DISORDER OF KIDNEY AND URETER, UNSPECIFIED (6) Sepsis Code(s): A41.9 - SEPSIS, UNSPECIFIED ORGANISM Qualifiers: Sepsis type: Streptococcus group A Qualified Code(s): A40.0 - Sepsis due to streptococcus, group A Assessment/Plan Current Medications Generic Name Dose Route Start Last Admin Trade Name Freq PRN Reason Stop Dose Admin Acetaminophen 650 mg 02/22/17 05:36 02/22/17 05:30 Tylenol Suppository - HI 650 mg Q6H PRN Administration FEVER OR PAIN Vancomycin HCl 1,250 mg/ 250 mls @ 250 mls/hr 02/22/17 10:00 02/22/17 19:47 Dextrose IVPB 250 mls/hr DAILY FAMILIA Administration Protocol Piperacillin Sod/Tazobactam Sod 50 mls @ 100 mls/hr 02/22/17 02:00 02/23/17 09: 29 Zosyn 3.375gm Ivpb (Pre-Docked) IVPB 100 mls/hr Q8H-IV FAMILIA Administration Protocol Norepinephrine Bitartrate 8, 500 mls @ 18.75 mls/hr 02/22/17 12:30 02/22/17 14: 10 000 mcg/ Dextrose IV 37.5 mls/hr TITR FAMILIA Administration Protocol 5 MCG/MIN Clindamycin Phosphate 50 mls @ 100 mls/hr 02/22/17 13:00 02/23/17 09:29 Cleocin 900 Mg Premix Ivpb - IVPB 100 mls/hr Q8H-IV FAMILIA Administration Vasopressin 50 units/ Sodium 100 mls @ 4 mls/hr 02/22/17 21:00 02/22/17 21:52 Chloride IVPB 4 mls/hr ASDIR FAMILIA Administration Protocol 2 UNITS/HR Morphine Sulfate 2 mg 02/23/17 04:44 02/23/17 10:14 Morphine Injection - IVPUSH 2 mg Q2H PRN Administration SHORTNESS OF BREATH Nystatin 1 applic 02/22/17 10:00 02/23/17 09:29 Nystop Powder - TP 1 applic DAILY FAMILIA Administration Impression 1. azotemia/CKD - unclear if acute or chronic 2. lactic acidosis 3. sepsis 4. cellulitis 5. hypotensive 6. a-fib Plan - renal function worsening - cont pressors - monitor lactic acid - family are discussing GOC - pt is oliguric - discussed with ICU team - cont supportive care - case discussed with family - RADHA likely from ATN secondary to hypotension - prognosis guarded Dr West
[2017-02-23] MEDS: VANCOMYCIN 1,250 MG in DEXTROSE 5%-WATER - 250 ML IVPB SCH (14:04)
[2017-02-23] MEDS ORDERED: MORPHINE 100 MG in SODIUM CHLORIDE 98 ML IVPB SCH (14:45)
[2017-02-23 15:21] VITALS: BP 50/32; PULSE 68
--- NOTE | 2017-02-23 18:17 | DS ---
Physical Examination Vital Signs: Vital Signs Temperature 102 F H 02/23/17 13:00 Pulse Rate 68 02/23/17 15:00 Respiratory Rate 12 02/23/17 15:00 Blood Pressure 50/32 02/23/17 15:00 O2 Sat by Pulse Oximetry (%) 96 02/22/17 10:45 Labs: CBC, BMP 02/23/17 05:35 02/23/17 05:35 Discharge Summary Reason For Visit: ATRIAL FIBRILLATION Condition: Critical - Instructions Referrals: Ko Gonzalez [Primary Care Provider] - Disposition: - Home Medications Comprehensive Discharge Medication List: Ambulatory Orders Alendronate Na [Fosamax] 70 mg PO Q7D 02/21/17 Amlodipine Besylate [Norvasc -] 5 mg PO DAILY 02/21/17 Folic Acid 1 mg PO DAILY 02/21/17 Hydrochlorothiazide 25 mg PO DAILY 02/21/17 Hydroxychloroquine Sulfate 200 mg PO DAILY 02/21/17 Lovastatin [Altoprev] 20 mg PO DAILY 02/21/17 Methotrexate [Mexate -] 12.5 mg PO Q7D 02/21/17 Oxybutynin Chloride 5 mg PO DAILY 02/21/17 Potassium Chloride [Klor-Con] 20 meq PO DAILY 02/21/17 PT
== END 2017-02-23 15:54 | disposition expired | DRG 871 ==
LOC: JER 13:48 → JERBED 15:45 → UNDOADMIN 15:45 → JERBED 19:16 → JICU 20:05
PROVIDERS: ADMIT Internal Medicine; ATTEND Internal Medicine
PROC: 05HM33Z Insertion of Infusion Device into Right Internal Jugular Vein, Percutaneous Approach (ICD-10-PCS; principal; 2017-02-22)
PROC: B543ZZA Ultrasonography of Right Jugular Veins, Guidance (ICD-10-PCS; 2017-02-22)
DX: A40.0 Sepsis due to streptococcus, group A (principal); N17.0 Acute kidney failure with tubular necrosis; J96.00 Acute respiratory failure, unspecified whether with hypoxia or hypercapnia; R65.21 Severe sepsis with septic shock; L03.116 Cellulitis of left lower limb; E87.2 Acidosis; R64 Cachexia; I82.432 Acute embolism and thrombosis of left popliteal vein; I48.1 Persistent atrial fibrillation; D68.8 Other specified coagulation defects; I89.0 Lymphedema, not elsewhere classified; E86.0 Dehydration; M81.0 Age-related osteoporosis without current pathological fracture; R63.0 Anorexia; Z68.23 Body mass index [BMI] 23.0-23.9, adult; R15.9 Full incontinence of feces; R62.7 Adult failure to thrive; Z89.511 Acquired absence of right leg below knee; Z96.652 Presence of left artificial knee joint; I11.9 Hypertensive heart disease without heart failure; E78.00 Pure hypercholesterolemia, unspecified; M06.9 Rheumatoid arthritis, unspecified; R23.0 Cyanosis; I25.119 Atherosclerotic heart disease of native coronary artery with unspecified angina pectoris; D70.9 Neutropenia, unspecified; D64.9 Anemia, unspecified; A41.9 Sepsis, unspecified organism; Z66 Do not resuscitate
CPT/HCPCS: 36415; 36600; 71010-TC; 80048; 80053; 81003; 81015; 82040; 82272; 82436; 82550; 82553; 82570; 82803; 83605; 83735; 84100; 84133; 84300; 84443; 84484; 85025; 85027; 85730; 86022; 87040; 87086; 87186; 87899; 93005; 93010; 93306-TC; 93971-TC; 94660; 99285-25; G0480; J1644